=== PATIENT | male | born 1955 | race Caucasian/White ===

== ENCOUNTER 2016-09-24 16:23 | Outpatient (RCR) | payer SELFPAY ==
[2013-12-14 13:06] VITALS: BMI 47.5
[~2016-09-24 16:23] MED LIST: ACET-1966 PO; ACET650T40 PO; ALB0.5 IH; ALB18R INH; ALBU2.5V36 NEB; ALLO100T70 PO; ASP325 PO; ASPI-1471 PO; CAR3.125 PO; CARV3.1255 PO; CEP500; CEPH-13 PO; CYC10; CYCL-343 PO; DABI110C; DABI75CA4 PO; DIGO125T25 PO; DIGO125T73 PO; DOCU-416 PO; DUL100/5PT INH; ENOX120D5 SQ; FLUT1DIS28 IH; FURO-43 PO; FURO-45 PO; FURO-47 PO; FURO10VI IVP; FURO20TA19 PO; HEPA100D58 IV; HYDR-2946; HYDR-4309 PO; IBUP50TA PO; INDO25OR3 PO; INDO50CA92 PO; IPRA0.2S8 IH; KET10 PO; LEV500 PO; LEVO750T44 PO; LOR5 PO; LOR5/325 PO; LOSA50TA68 PO; LOSA50TA72 PO; METO-221 PO; METR250 PO; NAPR-723 PO; NIT4 SL; OXYC-865 PO; OXYGEN INH; OXYGENHOME INH; PANT40TA65 PO; PER PO; POLY17PO25 PO; POTA10CA40 PO; PRED20TA6 PO; RIVA20TA PO; ROS10 PO; SPIR25TA76 PO; TRAM-420 PO; TRAM-627 PO; WARF2TAB81 PO; WARF7.5T32 PO; oxygen IH
[2017-03-16] MEDS ORDERED: FURO-47 PO (12:09)
[2017-03-16] MEDS ORDERED: ALLO-119 PO (12:16)
[2017-03-16] MEDS ORDERED: POTA10CA40 PO (12:16)
[2017-03-16] MEDS ORDERED: RIVA15TA PO (12:16)
[2017-03-16] MEDS ORDERED: OXYC-373 PO (12:16)
[2017-03-16] MEDS ORDERED: IPRA4AER IH (14:29)
[2017-05-29] MEDS ORDERED: ASPI81TA94 PO (12:44)
[2017-05-29] MEDS ORDERED: NITR0.4T3 SL (12:55)
[2017-07-04] MEDS ORDERED: FURO-45 PO (15:54)
[2017-07-04] MEDS ORDERED: RIVA20TA PO (15:54)
[2017-07-04] MEDS ORDERED: PANT40TA65 PO (15:54)
[2017-07-08] MEDS ORDERED: RIVA15TA PO (10:19)
== END 2017-09-24 ==
LOC: TCM 16:23
PROVIDERS: ATTEND Nurse Practitioner
DX: Z02.9 Encounter for administrative examinations, unspecified (principal)

== ENCOUNTER → 2017-09-23 | Outpatient (REF) ==
[2017-07-05 12:46] VITALS: BMI 45.4
[~2017-09-23] MED LIST changes: +ALLO-119 PO; +ASPI81TA94 PO; +IPRA4AER IH; +NITR0.4T3 SL; +OXYC-373 PO; +RIVA15TA PO
--- NOTE | 2017-09-23 15:38 | RADIOLOGY IMAGING REPORT ---
FACILITY: [facility] - [place] PATIENT NAME: Pascale Fink : 1955 MR: [id number] V: [id number] EXAM DATE: ORDERING PHYSICIAN: OC NEUMANN TECHNOLOGIST: Location: [facility] - [place] Patient: Pascale Fink : 1955 Visit/Account:[id number] Date of Sevice: 09/23/2017 Exam type: LUMBAR SPINE 2 OR 3 VIEW History: Chronic low back pain worsening Comparison: February 16, 2012. Findings: There are five nonrib-bearing lumbar-type vertebral bodies present. There is a 2 cm anterior subluxa tion of L5 with respect to S1 that has worsened in the interim and previously measured 1.5 cm. There is severe loss of disc space and marked sclerosis of the adjacent endplates. There is moderate disc space narrowing at L4-5 with gas in the disc space from disc degeneration and marked degenerative en dplate changes and anterior osteophytes. These changes also have worsened in the interim. There is moderate to severe disc space narrowing at L1-2 and L2-3 L3-4 with degenerative endplate changes part icularly prominent at L2-3. There is straightening of normal lumbar lordosis. Extensive spondylotic changes of the visualized lower thoracic spine also noted IMPRESSION: 1. Severe spondylotic changes lumbar spine which have advanced when compared the prior study from 2011 Report Dictated By: Catrina Carbajal MD at 09/23/2017 3:29 PM Report E-Signed By: Catrina Carbajal MD at 09/23/2017 3:35 PM WSN:[email or web address]
== END ==
LOC: RAD 14:22
PROVIDERS: ATTEND Orthopaedic Surgery Orthopaedic Surgery of the Spine
DX: M54.5 Low back pain (principal)
CPT/HCPCS: 72100

== ENCOUNTER 2017-12-16 12:35 | Emergency (ER) | payer MEDICAID ==
[2017-07-05 12:46] VITALS: Wt 127.5 kg
[~2017-12-16 12:35] MED LIST changes: +WARF2TAB13 PO; -WARF2TAB81 PO; +WARF7.5T13 PO; -WARF7.5T32 PO
--- NOTE | 2017-12-16 12:42 | ER Report ---
History and Physical Time Seen By MD: 12:45 HPI/ROS This is a 62-year-old male currently taking sotalol toe secondary to a pulmonary embolism who presents to the emergency department with a bleeding external hemorrhoid. He states that the hemorrhoid has been bleeding since earlier this morning, and he was worried that he was losing too much blood. No chest pain no lightheaded no syncope. No other symptoms other than he still has pain in his buttocks from other external hemorrhoids. Remainder of the 14 system rev: Yes Allergies: Coded Allergies: No Known Drug Allergies (Verified , 12/16/17) Home Meds Active Scripts Rivaroxaban 15 Mg (XARELTO 15 MG) 15 Mg Tablet, 15 MG PO QDAY, #30 TAB Prov:REED AMAYA DO 07/08/17 Reported Medications Pantoprazole Sodium (PANTOPRAZOLE SODIUM) 40 Mg Tablet.dr, 40 MG PO QDAY, TAB.SR 07/04/17 Nitroglycerin (NITROGLYCERIN) 0.4 Mg Tab.subl, 0.4 MG SL Q5MIN Y for PAIN 05/29/17 Potassium Chloride (POTASSIUM CHLORIDE) 10 Meq Capsule.er, 10 MEQ PO QDAY 03/16/17 Oxycodone Hcl/Acetaminophen (OXYCODONE-ACETAMINOPHEN 5-325) 1 Each Tablet, 2 EACH PO TID Y for PAIN, TAB 03/16/17 Allopurinol (ZYLOPRIM) 300 Mg Tablet, 300 MG PO QDAY, TAB 03/16/17 Fluticasone/Salmeterol (ADVAIR 250-50 DISKUS) 1 Each Disk.w.dev, 1 EACH IH BID 08/21/16 Reviewed Nurses Notes: Yes Old Medical Records Reviewed: Yes Hx Smoking: No Smoking Status: Never Smoker Exposure to Second Hand Smoke?: No Hx Substance Use Disorder: No Hx Alcohol Use: No Family History of: HTN, Diabetes, Cardiac, DVT/PE Constitutional Vital Sign - Last 24 Hours 12/16/17 12/16/17 12/16/17 12/16/17 12:37 12:42 12:50 13:00 Temp 98.0 Pulse 88 70 Resp 16 B/P (MAP) 127/89 127/89 (102) 90/59 (69) Pulse Ox 90 94 O2 Delivery Nasal Cannula 12/16/17 12/16/17 12/16/17 12/16/17 13:05 13:20 13:30 13:35 Pulse 66 65 74 B/P (MAP) 85/51 (62) Pulse Ox 94 93 93 12/16/17 12/16/17 12/16/17 12/16/17 13:50 14:00 14:05 16:31 Pulse 65 66 B/P (MAP) 95/65 (75) 129/84 (99) Pulse Ox 93 92 Physical Exam General Appearance: The patient is alert, has no immediate need for airway protection and no current signs of toxicity. Eyes: Pupils equal and round no injection. Respiratory: Chest is non tender, lungs are clear to auscultation. Cardiac: regular rate and rhythm Gastrointestinal: Abdomen is soft and non tender, no masses, bowel sounds normal. Extremities have full range of motion and are non tender. Skin: Multiple external hemorrhoids at anus. One of the hemorrhoids appears to have been bleeding, but has no current active bleeding. DIFFERENTIAL DIAGNOSIS: After history and physical exam differential diagnosis was considered for too much blood loss due to blood thinning medications Medical Decision Making Data Points Result Diagram: 12/16/17 1508 Laboratory Hematology Test 12/16/17 15:08 Red Blood Count 4.72 M/uL (4.00-5.60) Mean Corpuscular Volume 91.5 fL (80.0-96.0) Mean Corpuscular Hemoglobin 30.8 pg (26.0-33.0) Mean Corpuscular Hemoglobin Concent 33.6 g/dL (32.0-36.0) Red Cell Distribution Width 19.6 % (11.5-14.5) Mean Platelet Volume 8.6 fL (7.2-11.1) Neutrophils (%) (Auto) 80.1 % (39.4-72.5) Lymphocytes (%) (Auto) 5.5 % (17.6-49.6) Monocytes (%) (Auto) 8.1 % (4.1-12.4) Eosinophils (%) (Auto) 5.6 % (0.4-6.7) Basophils (%) (Auto) 0.7 % (0.3-1.4) Nucleated RBC Relative Count (auto) 0.0 /100WBC Neutrophils # (Auto) 8.5 K/uL (2.0-7.4) Lymphocytes # (Auto) 0.6 K/uL (1.3-3.6) Monocytes # (Auto) 0.9 K/uL (0.3-1.0) Eosinophils # (Auto) 0.6 K/uL (0.0-0.5) Basophils # (Auto) 0.1 K/uL (0.0-0.1) Nucleated RBC Absolute Count (auto) 0.00 K/uL Chemistry Test 12/16/17 15:08 White Blood Count 10.6 k/uL (4.5-11.0) Red Blood Count 4.72 M/uL (4.00-5.60) Hemoglobin 14.5 g/dL (14.0-18.0) Hematocrit 43.2 % (42.0-52.0) Mean Corpuscular Volume 91.5 fL (80.0-96.0) Mean Corpuscular Hemoglobin 30.8 pg (26.0-33.0) Mean Corpuscular Hemoglobin Concent 33.6 g/dL (32.0-36.0) Red Cell Distribution Width 19.6 % (11.5-14.5) Platelet Count 193 K/uL (150-450) Mean Platelet Volume 8.6 fL (7.2-11.1) Neutrophils (%) (Auto) 80.1 % (39.4-72.5) Lymphocytes (%) (Auto) 5.5 % (17.6-49.6) Monocytes (%) (Auto) 8.1 % (4.1-12.4) Eosinophils (%) (Auto) 5.6 % (0.4-6.7) Basophils (%) (Auto) 0.7 % (0.3-1.4) Nucleated RBC Relative Count (auto) 0.0 /100WBC Neutrophils # (Auto) 8.5 K/uL (2.0-7.4) Lymphocytes # (Auto) 0.6 K/uL (1.3-3.6) Monocytes # (Auto) 0.9 K/uL (0.3-1.0) Eosinophils # (Auto) 0.6 K/uL (0.0-0.5) Basophils # (Auto) 0.1 K/uL (0.0-0.1) Nucleated RBC Absolute Count (auto) 0.00 K/uL ED Course/Re-evaluation ED Course This is a 62-year-old male on Xarelto secondary to a pulmonary embolism. Presented to the emergency department with a bleeding external hemorrhoid that had been bleeding since this morning. The patient came to the emergency department because he was concerned that the bleeding would not stop considering his Xarelto. He did have some episodes of transient hypotension in the emergency department however it spontaneously resolved. His H&H is within normal limits and the hemorrhoid is no longer bleeding. The patient has other residual hemorrhoids that are not hemorrhaging. We discussed hemorrhoid care including sitz baths. The patient voices understanding and will continue to care for the other hemorrhoids as well. Decision to Disposition Date: December 16, 2017 Decision to Disposition Time: 16:31 Depart Departure Latest Vital Signs Vital Signs Date Time Temp Pulse Resp B/P (MAP) Pulse Ox O2 Delivery O2 Flow Rate FiO2 12/16/17 16:31 129/84 (99) 12/16/17 14:05 66 92 12/16/17 12:37 98.0 16 Nasal Cannula Impression: Primary Impression: External hemorrhoid, bleeding Condition: Improved Disposition: HOME OR SELF-CARE Patient Instructions: Hemorrhoids (ED) ONELIA PEREZ MD December 16, 2017 12:42
[2017-12-16 15:13] LABS: PLATELET COUNT, AUTOMATED 193 K/uL (150-450)
[2017-12-16 16:31] VITALS: BP 129/84
== END 2017-12-16 16:32 | disposition home or self-care (01) ==
LOC: ER 12:38
DX: K64.4 Residual hemorrhoidal skin tags (principal)
CPT/HCPCS: 85025; 99283

== ENCOUNTER 2017-12-26 16:20 | Emergency (ER) | payer MEDICAID ==
[2017-07-05 12:46] VITALS: Wt 102.1 kg
--- NOTE | 2017-12-26 16:34 | ER Report ---
History and Physical Time Seen By MD: 16:34 HPI/ROS CHIEF COMPLAINT: Rectal bleeding HISTORY OF PRESENT ILLNESS: This is a 62 male who presents to the emergency department for rectal bleeding. Patient states that about 1-2 hours ago he went to the bathroom and noticed that he had some blood in the stool, in the toilet and on the toilet paper, patient also states that there were some dark red blood clots. Patient also states he has lower abdominal pain. Intermittent nausea. Denies increased shortness breath or chest pain. Patient denies having rectal bleeding before. Patient has had a colonoscopy with a polyp removed which was negative for malignancy. Patient has a history of CHF is on continuous oxygen. No fevers or chills. No urinary discomfort. REVIEW OF SYSTEMS: Constitutional: No fever, no chills. Eyes: No discharge. ENT: No sore throat. Cardiovascular: No chest pain, no palpitations. Respiratory: No cough, no shortness of breath. Gastrointestinal: As above. Genitourinary: No hematuria. Musculoskeletal: No back pain. Skin: No rashes. Neurological: No headache. Allergies: Coded Allergies: No Known Drug Allergies (Verified , 12/26/17) Home Meds Active Scripts Hydrocodone Bit/Acetaminophen (NORCO 5-325 TABLET) 1 Each Tablet, 1 EACH PO Q4- 6H Y for PAIN, #10 TAB 0 Refills Prov:BAIRON [place]- 12/26/17 Ondansetron (ZOFRAN ODT) 4 Mg Tab.rapdis, 4 MG PO Q6H Y for NAUSEA/VOMITING, # 20 TAB.SHIRA Prov:BAIRON [facility]- 12/26/17 Reported Medications [Diuretic] No Conflict Check 12/26/17 Pantoprazole Sodium (PANTOPRAZOLE SODIUM) 40 Mg Tablet.dr, 40 MG PO QODAY, TAB.SR 12/26/17 Rivaroxaban 15 Mg (XARELTO 15 MG) 15 Mg Tablet, 7.5 MG PO, TAB 12/26/17 Nitroglycerin (NITROGLYCERIN) 0.4 Mg Tab.subl, 0.4 MG SL Q5MIN Y for PAIN 05/29/17 Potassium Chloride (POTASSIUM CHLORIDE) 10 Meq Capsule.er, 10 MEQ PO QDAY 03/16/17 Allopurinol (ZYLOPRIM) 300 Mg Tablet, 300 MG PO QDAY, TAB 03/16/17 Fluticasone/Salmeterol (ADVAIR 250-50 DISKUS) 1 Each Disk.w.dev, 1 EACH IH BID 08/21/16 Discontinued Reported Medications Pantoprazole Sodium (PANTOPRAZOLE SODIUM) 40 Mg Tablet.dr, 40 MG PO QDAY, TAB.SR 07/04/17 Oxycodone Hcl/Acetaminophen (OXYCODONE-ACETAMINOPHEN 5-325) 1 Each Tablet, 2 EACH PO TID Y for PAIN, TAB 03/16/17 Discontinued Scripts Rivaroxaban 15 Mg (XARELTO 15 MG) 15 Mg Tablet, 15 MG PO QDAY, #30 TAB Prov:REED AMAYA DO 07/08/17 Past Medical/Surgical History Patient has a past medical and surgical history of congestive heart failure, murmur, hypertension, DVT, pneumonia, pulmonary wasn't, GERD, arthritis, right pinky fracture, vertebrae spurs, tonsillectomy. Reviewed Nurses Notes: Yes Hx Smoking: No Smoking Status: Never Smoker Exposure to Second Hand Smoke?: No Hx Substance Use Disorder: No Hx Alcohol Use: No Constitutional Vital Sign - Last 24 Hours 12/26/17 12/26/17 12/26/17 12/26/17 16:33 16:34 16:45 16:50 Temp 97.2 Pulse 107 75 Resp 20 B/P (MAP) 129/87 129/87 (101) 135/76 (95) Pulse Ox 77 87 O2 Delivery Room Air 12/26/17 12/26/17 12/26/17 12/26/17 17:00 17:15 17:20 17:30 Pulse 68 B/P (MAP) 111/74 (86) 103/72 (82) 119/78 (92) Pulse Ox 91 12/26/17 12/26/17 12/26/17 12/26/17 17:45 18:00 18:05 18:15 Pulse ??? B/P (MAP) 123/78 (93) 118/69 (85) 107/80 (89) 12/26/17 12/26/17 12/26/17 12/26/17 18:20 18:30 18:35 18:45 Pulse 63 60 B/P (MAP) 107/73 (84) 116/80 (92) Pulse Ox 89 87 12/26/17 12/26/17 12/26/17 12/26/17 18:50 19:00 19:05 19:15 Pulse 64 58 B/P (MAP) 117/85 (96) 108/75 (86) Pulse Ox 90 87 12/26/17 12/26/17 12/26/17 12/26/17 19:20 19:25 19:30 19:34 Pulse 62 55 B/P (MAP) 107/78 (88) 120/89 (99) Pulse Ox 90 91 12/26/17 12/26/17 12/26/17 12/26/17 19:40 19:45 19:55 20:00 Pulse 58 59 B/P (MAP) 106/68 (81) 114/86 (95) Pulse Ox 90 95 12/26/17 12/26/17 12/26/17 12/26/17 20:10 20:15 20:22 20:25 Pulse 57 55 B/P (MAP) 126/95 (105) 124/84 (97) Pulse Ox 93 91 12/26/17 12/26/17 12/26/17 12/26/17 20:30 20:40 20:45 20:55 Pulse 57 51 B/P (MAP) 115/78 (90) 121/88 (99) Pulse Ox 92 91 12/26/17 12/26/17 21:00 21:10 Pulse 85 Resp 16 B/P (MAP) 126/90 (102) 138/88 (105) Pulse Ox 95 O2 Delivery Room Air Intake and Output 12/26/17 12/26/17 12/27/17 15:00 23:00 07:00 Intake Total 1000 ml Balance 1000 ml Physical Exam General Appearance: The patient is alert, has no immediate need for airway protection and no signs of toxicity. Eyes: Pupils equal and round no pallor or injection. ENT, Mouth: Mucous membranes are moist. Respiratory: There are no retractions, lungs are clear to auscultation. Cardiovascular: Regular rate and rhythm, systolic murmur, no clicks or rubs. Gastrointestinal: Abdomen is soft and mild lower abdominal tenderness, no masses, bowel sounds normal. Neurological: Alert and oriented 4. Moving all extremities. Following all commands. No focal neuro deficits. Skin: Warm and dry, no rashes. Musculoskeletal: Neck is supple non tender. Extremities are nontender, nonswollen and have full range of motion. DIFFERENTIAL DIAGNOSIS: After history and physical exam differential diagnosis was considered for abdominal pain and rectal bleeding including but not limited to appendicitis, diverticulitis, diverticulosis, upper GI bleed, lower GI bleed , hemorrhoids, cholecystitis, gastritis and urinary tract infection. Medical Decision Making Data Points Result Diagram: 12/26/17 1657 12/26/17 1657 Laboratory Hematology Test 12/26/17 16:45 12/26/17 16:57 12/26/17 18:00 Stool Occult Blood (IFOB) Positive (NEGATIVE) Red Blood Count 4.91 M/uL (4.00-5.60) Mean Corpuscular Volume 91.7 fL (80.0-96.0) Mean Corpuscular Hemoglobin 31.4 pg (26.0-33.0) Mean Corpuscular Hemoglobin Concent 34.2 g/dL (32.0-36.0) Red Cell Distribution Width 18.2 % (11.5-14.5) Mean Platelet Volume 8.5 fL (7.2-11.1) Neutrophils (%) (Auto) 72.3 % (39.4-72.5) Lymphocytes (%) (Auto) 10.9 % (17.6-49.6) Monocytes (%) (Auto) 7.2 % (4.1-12.4) Eosinophils (%) (Auto) 8.8 % (0.4-6.7) Basophils (%) (Auto) 0.8 % (0.3-1.4) Nucleated RBC Relative Count (auto) 0.1 /100WBC Neutrophils # (Auto) 4.9 K/uL (2.0-7.4) Lymphocytes # (Auto) 0.7 K/uL (1.3-3.6) Monocytes # (Auto) 0.5 K/uL (0.3-1.0) Eosinophils # (Auto) 0.6 K/uL (0.0-0.5) Basophils # (Auto) 0.1 K/uL (0.0-0.1) Nucleated RBC Absolute Count (auto) 0.01 K/uL Sodium Level 142 mmol/L (137-145) Potassium Level 4.1 mmol/L (3.5-5.0) Chloride Level 105 mmol/L (98-107) Carbon Dioxide Level 25 mmol/L (22-30) Blood Urea Nitrogen 30 mg/dl (9-21) Creatinine 1.20 mg/dl (0.66-1.25) Glomerular Filtration Rate Calc > 60.0 Random Glucose 112 mg/dl (75-110) Calcium Level 9.0 mg/dl (8.4-10.2) Total Bilirubin 0.9 mg/dl (0.2-1.3) Aspartate Amino Transf (AST/SGOT) 30 U/L (0-35) Alanine Aminotransferase (ALT/SGPT) 25 U/L (0-56) Alkaline Phosphatase 127 U/L (0-126) Total Protein 7.1 gm/dl (6.3-8.2) Albumin 3.8 g/dl (3.5-5.0) Urine Color Yellow Urine Clarity Clear Urine pH 5.0 pH (4.8-9.5) Urine Specific [place] 1.015 Urine Protein Negative mg/dL (NEGATIVE) Urine Glucose (UA) Negative mg/dL (NEGATIVE) Urine Ketones Negative mg/dL (NEGATIVE) Urine Blood Small (NEGATIVE) Urine Nitrite Negative (NEGATIVE) Urine Bilirubin Negative (NEGATIVE) Urine Urobilinogen Negative mg/dL (0.2-1.9) Urine Leukocyte Esterase Negative (NEGATIVE) Urine RBC 2 /HPF (0-2/HPF) Urine WBC None /HPF (0-5/HPF) Urine Squamous Epithelial Cells None /LPF (</=FEW) Urine Bacteria Negative /HPF (NONE-FEW) Urine Mucus None /HPF (NONE-FEW) Chemistry Test 12/26/17 16:45 12/26/17 16:57 12/26/17 18:00 Stool Occult Blood (IFOB) Positive (NEGATIVE) White Blood Count 6.8 k/uL (4.5-11.0) Red Blood Count 4.91 M/uL (4.00-5.60) Hemoglobin 15.4 g/dL (14.0-18.0) Hematocrit 45.0 % (42.0-52.0) Mean Corpuscular Volume 91.7 fL (80.0-96.0) Mean Corpuscular Hemoglobin 31.4 pg (26.0-33.0) Mean Corpuscular Hemoglobin Concent 34.2 g/dL (32.0-36.0) Red Cell Distribution Width 18.2 % (11.5-14.5) Platelet Count 179 K/uL (150-450) Mean Platelet Volume 8.5 fL (7.2-11.1) Neutrophils (%) (Auto) 72.3 % (39.4-72.5) Lymphocytes (%) (Auto) 10.9 % (17.6-49.6) Monocytes (%) (Auto) 7.2 % (4.1-12.4) Eosinophils (%) (Auto) 8.8 % (0.4-6.7) Basophils (%) (Auto) 0.8 % (0.3-1.4) Nucleated RBC Relative Count (auto) 0.1 /100WBC Neutrophils # (Auto) 4.9 K/uL (2.0-7.4) Lymphocytes # (Auto) 0.7 K/uL (1.3-3.6) Monocytes # (Auto) 0.5 K/uL (0.3-1.0) Eosinophils # (Auto) 0.6 K/uL (0.0-0.5) Basophils # (Auto) 0.1 K/uL (0.0-0.1) Nucleated RBC Absolute Count (auto) 0.01 K/uL Glomerular Filtration Rate Calc > 60.0 Calcium Level 9.0 mg/dl (8.4-10.2) Total Bilirubin 0.9 mg/dl (0.2-1.3) Aspartate Amino Transf (AST/SGOT) 30 U/L (0-35) Alanine Aminotransferase (ALT/SGPT) 25 U/L (0-56) Alkaline Phosphatase 127 U/L (0-126) Total Protein 7.1 gm/dl (6.3-8.2) Albumin 3.8 g/dl (3.5-5.0) Urine Color Yellow Urine Clarity Clear Urine pH 5.0 pH (4.8-9.5) Urine Specific Branford 1.015 Urine Protein Negative mg/dL (NEGATIVE) Urine Glucose (UA) Negative mg/dL (NEGATIVE) Urine Ketones Negative mg/dL (NEGATIVE) Urine Blood Small (NEGATIVE) Urine Nitrite Negative (NEGATIVE) Urine Bilirubin Negative (NEGATIVE) Urine Urobilinogen Negative mg/dL (0.2-1.9) Urine Leukocyte Esterase Negative (NEGATIVE) Urine RBC 2 /HPF (0-2/HPF) Urine WBC None /HPF (0-5/HPF) Urine Squamous Epithelial Cells None /LPF (</=FEW) Urine Bacteria Negative /HPF (NONE-FEW) Urine Mucus None /HPF (NONE-FEW) Urinalysis Test 12/26/17 18:00 Urine Color Yellow Urine Clarity Clear Urine pH 5.0 pH (4.8-9.5) Urine Specific Branford 1.015 Urine Protein Negative mg/dL (NEGATIVE) Urine Glucose (UA) Negative mg/dL (NEGATIVE) Urine Ketones Negative mg/dL (NEGATIVE) Urine Blood Small (NEGATIVE) Urine Nitrite Negative (NEGATIVE) Urine Bilirubin Negative (NEGATIVE) Urine Urobilinogen Negative mg/dL (0.2-1.9) Urine Leukocyte Esterase Negative (NEGATIVE) Urine RBC 2 /HPF (0-2/HPF) Urine WBC None /HPF (0-5/HPF) Urine Squamous Epithelial Cells None /LPF (</=FEW) Urine Bacteria Negative /HPF (NONE-FEW) Urine Mucus None /HPF (NONE-FEW) EKG/Imaging Imaging EXAMINATION: CT abdomen with IV contrast CT pelvis with IV contrast HISTORY: Abdominal pain. Rectal bleeding. COMPARISON: 01/18/2017. TECHNIQUE: Axial images were taken through the abdomen and pelvis with intravenous contrast. Sagittal and coronal reformatted images are also submitted. CONTRAST: 75 mL of IV [id number] One of the following dose optimization techniques was utilized in the performance of this exam: Automated exposure control; adjustment of the mA and/ or kV according to the patient's size; or use of an iterative reconstruction technique. Specific details can be referenced in the facility's radiology CT exam operational policy. FINDINGS: Liver/biliary: Large gallstone within the gallbladder. Pancreas: Negative. Spleen: Negative. Adrenal glands: Negative. Kidneys: Simple appearing cyst in the left kidney measuring 3.3 cm. Subcentimeter cyst in the upper pole of the right kidney. Pelvic structures: Urinary bladder diverticulum along the left superolateral aspect of the urinary bladder. Bowel: Colonic diverticulosis. There is a mildly prominent and diverticulum along the sigmoid colon with slight stranding in the adjacent fat. Normal appendix. Peritoneum/retroperitoneum/mesenteries: Slight stranding along the sigmoid colon as noted above. No intraperitoneal free air. Trace free fluid in the upper abdomen along the liver. Vessels: Mild calcified plaque of the aorta and iliac arteries. Musculoskeletal/body wall: Mild body wall edema along the back and flanks. Advanced disc degenerative changes throughout the lumbar spine. 11 mm anterolisthesis of L5 on S1. Chronic bilateral pars defects of L5. Vacuum disc phenomenon at multiple levels. There is bony fusion of L5 and S1 across the disc space. Mild degenerative changes of the hip joints. Lymph node assessment: Negative. Lower chest: Small right pleural effusion. Mild subsegmental atelectasis at the lung bases. Mild cardiomegaly. Small pericardial effusion. IMPRESSION: There is colonic diverticulosis. There is a mildly prominent diverticulum along the sigmoid colon with slight stranding in the adjacent fat, suggesting possible mild diverticulitis. Cholelithiasis. Trace intraperitoneal free fluid. Small right pleural effusion. Small pericardial effusion. Mild cardiomegaly. Mild body wall edema. Advanced degenerative changes in the lumbar spine with chronic spondylolysis of L5 and spondylolisthesis of L5 on S1. Report Dictated By: Santana Escoto MD at 12/26/2017 7:10 PM Report E-Signed By: Santana Escoto MD at 12/26/2017 7:24 PM [id number] ED Course/Re-evaluation Clinical Indication for ER IV: Hydration, IV Access ED Course The patient was admitted to room. History and physical were obtained. Differential diagnosis considered. An IV was started. A CBC, CMP, UA and type and screen were obtained. 4 mg IV Zofran, 1 L normal saline bolus. Lab studies unremarkable. UA unremarkable. A CT of the abdomen pelvis showing Some colonic diverticulosis, possible mild diverticulitis, cholelithiasis, which he has had in the past, trace intraperitoneal free fluid, small pleural effusion mild cardiomegaly, mild by wall edema. I did review these laboratory studies and the CT results with the patient and the family, I did tell him I elected to talk to the general surgeon on-call and get their recommendations on how to proceed. I did speak with Dr. Jarquin as noted below. I did tell them that he needs to stop Xarelto for 3 days. Also told him that he needs to follow-up with Dr. Quintero this week for a colonoscopy. I also did tell them that given the patient's normal vital signs, afebrile and no white count Dr. Jarquin did not feel that antibiotics would necessarily be beneficial at this time. I did discuss this with the family and the patient and they were in agreement with this we did have agreed that if the patient becomes febrile or has any other changes that he will contact his primary care provider or return to the emergency department. Patient states he was having a small amount of nausea and finally decided to try small dose of pain medication before going home. I did give the patient 4 mg IV Zofran and 2 mg IV morphine. Patient was given a home pack for Zofran and hydrocodone. Patient was also given a prescription for Zofran and hydrocodone. The patient family has other questions or concerns at time of discharge. Patient states he's feeling much better and feels that he go home. 12/26/2017 6:28:37 pm I did review the lab results with the patient, I did tell him that his hemoglobin and hematocrit look good. And I'm waiting on the CT results. 12/26/2017 8:04:38 pm I did speak with Dr. Jarquin the on-call surgeon regarding the patient's case, he felt that the patient would be fine to go home and follow-up this week for a colonoscopy. He said he would recommend stopping the Xarelto for 3 days and at this point with no fever and the white count does not feel that antibiotics are warranted at this time. Patient's last colonoscopy was April 2017. 12/26/2017 9:00:20 pm patient states the nausea and mild abdominal pain have resolved. Patient states he is ready to go home. Patient has no more rectal bleeding at this time. Decision to Disposition Date: December 26, 2017 Decision to Disposition Time: 21:01 Depart Departure Latest Vital Signs Vital Signs Date Time Temp Pulse Resp B/P (MAP) Pulse Ox O2 Delivery O2 Flow Rate FiO2 12/26/17 21:10 85 16 138/88 (105) 95 Room Air 12/26/17 16:33 97.2 Impression: Primary Impression: Diverticulosis Additional Impressions: Rectal bleeding Abdominal pain Condition: Improved Disposition: HOME OR SELF-CARE Referrals: OLMAN QUINTERO MD New Scripts Hydrocodone Bit/Acetaminophen (NORCO 5-325 TABLET) 1 Each Tablet 1 EACH PO Q4-6H Y for PAIN, #10 TAB 0 Refills Prov: BAIRON WASHINGTON [employer] 12/26/17 Ondansetron (ZOFRAN ODT) 4 Mg Tab.rapdis 4 MG PO Q6H Y for NAUSEA/VOMITING, #20 TAB.SHIRA Prov: BAIRON WASHINGTON-STEFFI 12/26/17 Patient Instructions: Diverticulosis (DC) Additional Instructions: Drink plenty of fluids. Get plenty of rest. Take the pain medication and nausea medication as prescribed. If you develop fevers, increased abdominal pain or worsening symptoms consider returning to the ED for reevaluation, STOP YOUR XARELTO FOR [address] Landry Wednesday and schedule a follow up colonoscopy. Follow up with your primary care provider as scheduled. Problem Qualifiers Primary Impression: Diverticulosis Diverticulosis site: unspecified location Diverticulosis bleeding: diverticulosis with bleeding Qualified Codes: K57.91 - Diverticulosis of intestine, part unspecified, without perforation or abscess with bleeding Additional Impressions: Abdominal pain Abdominal location: generalized Qualified Codes: R10.84 - Generalized abdominal pain BAIRON WASHINGTON-STEFFI December 26, 2017 16:34
[2017-12-26] MEDS ORDERED: NS(*) 0.9% 1000 ML BAG 1,000 ML IV ONE (16:36)
[2017-12-26] MEDS ORDERED: PANT40TA65 PO (16:40)
[2017-12-26] MEDS ORDERED: RIVA15TA PO (16:40)
[2017-12-26] MEDS ORDERED: DIURETIC (16:41)
[2017-12-26] MEDS ORDERED: ONDANSETRON 4 MG/2 ML VIAL IVP ONE ×2 (16:50→20:15)
[2017-12-26 17:10] LABS: PLATELET COUNT, AUTOMATED 179 K/uL (150-450)
[2017-12-26] MEDS ORDERED: IOPAMIDOL 76% 75 ML INFUS BTL 75 ML ONE (18:09)
--- NOTE | 2017-12-26 19:28 | RADIOLOGY IMAGING REPORT ---
FACILITY: [facility] [place] PATIENT NAME: Pascale Fink : 1955 MR: [id number] V: [id number] EXAM DATE: ORDERING PHYSICIAN: BAIRON WASHINGTON TECHNOLOGIST: Location: [facility] Patient: Pascale Fink : 1955 Visit/Account:[id number] Date of Sevice: 12/26/2017 EXAMINATION: CT abdomen with IV contrast CT pelvis with IV contrast HISTORY: Abdominal pain. Rectal bleeding. COMPARISON: 01/18/2017. TECHNIQUE: Axial images were taken through the abdomen and pelvis with intravenous contrast. Sagitt al and coronal reformatted images are also submitted. CONTRAST: 75 mL of IV [id number] One of the following dose optimization techniques was utilized in the performance of this exam: Autom ated exposure control; adjustment of the mA and/or kV according to the patient's size; or use of an i terative reconstruction technique. Specific details can be referenced in the facility's radiology C T exam operational policy. FINDINGS: Liver/biliary: Large gallstone within the gallbladder. Pancreas: Negative. Spleen: Negative. Adrenal glands: Negative. Kidneys: Simple appearing cyst in the left kidney measuring 3.3 cm. Subcentimeter cyst in the upper p ole of the right kidney. Pelvic structures: Urinary bladder diverticulum along the left superolateral aspect of the urinary bladder. Bowel: Colonic diverticulosis. There is a mildly prominent and diverticulum along the sigmoid colon w ith slight stranding in the adjacent fat. Normal appendix. Peritoneum/retroperitoneum/mesenteries: Slight stranding along the sigmoid colon as noted above. No i ntraperitoneal free air. Trace free fluid in the upper abdomen along the liver. Vessels: Mild calcified plaque of the aorta and iliac arteries. Musculoskeletal/body wall: Mild body wall edema along the back and flanks. Advanced disc degenerative changes throughout the lumbar spine. 11 mm anterolisthesis of L5 on S1. Chronic bilateral pars defec ts of L5. Vacuum disc phenomenon at multiple levels. There is bony fusion of L5 and S1 across the dis c space. Mild degenerative changes of the hip joints. Lymph node assessment: Negative. Lower chest: Small right pleural effusion. Mild subsegmental atelectasis at the lung bases. Mild card iomegaly. Small pericardial effusion. IMPRESSION: There is colonic diverticulosis. There is a mildly prominent diverticulum along the sigmoid colon wit h slight stranding in the adjacent fat, suggesting possible mild diverticulitis. Cholelithiasis. Trace intraperitoneal free fluid. Small right pleural effusion. Small pericardial effusion. Mild cardiomegaly. Mild body wall edema. Advanced degenerative changes in the lumbar spine with chronic spondylolysis of L5 and spondylolisthe sis of L5 on S1. Report Dictated By: Santana Escoto MD at 12/26/2017 7:10 PM Report E-Signed By: Santana Escoto MD at 12/26/2017 7:24 PM WSN:[id number]
[2017-12-26] MEDS ORDERED: ONDANSETRON 4 MG ODT TH SL ONE (20:15)
[2017-12-26] MEDS ORDERED: ACET/HYDROC 5/325MG TH ER ONLY 2 TAB/BOTTLE PO ONE (20:15)
[2017-12-26] MEDS ORDERED: MORPHINE 2 MG/ML SYR IVP ONE (20:15)
[2017-12-26] MEDS ORDERED: HYDR-4309 PO (20:24)
[2017-12-26] MEDS ORDERED: ONDA4TAB PO (20:24)
[2017-12-26 21:10] VITALS: BP 138/88
== END 2017-12-26 21:25 | disposition home or self-care (01) ==
LOC: ER 16:37
DX: K57.91 Diverticulosis of intestine, part unspecified, without perforation or abscess with bleeding (principal); R10.84 Generalized abdominal pain
CPT/HCPCS: 74177; 81001; 82274; 85025; 86850; 86900; 86901; 96361; 96374; 96375; 96376; 99284; J2270; J2405; J7030; Q9967; S0119; 82040; 82247; 82310; 82374; 82435; 82565; 82947; 84075; 84132; 84155; 84295; 84450; 84460; 84520

== ENCOUNTER 2018-04-30 11:39 | Emergency (ER) | payer MEDICAID ==
[2017-07-05 12:46] VITALS: Wt 111.2 kg
[~2018-04-30 11:39] MED LIST changes: +DIURETIC; +INDO-23 PO; -INDO50CA92 PO; -LOSA50TA72 PO; +LOSA50TA74 PO; +ONDA4TAB PO
[2018-04-30] MEDS ORDERED: NS(*) 0.9% 500 ML BAG 500 ML IV ONE (11:55)
[2018-04-30] MEDS ORDERED: ASPIRIN 81 MG CHEW PO ONE (11:55)
--- NOTE | 2018-04-30 11:55 | ER Report ---
History and Physical Time Seen By MD: 11:47 Hx. of Stated Complaint: chest pain mid chest past week, sob, headache and blurred vision, no relief from nitro HPI/ROS CHIEF COMPLAINT: Chest pain, headache HISTORY OF PRESENT ILLNESS: 62-year-old male patient presents to emergency room with complaint of chest pain and headache. Patient states this been going on for the past week. He states that both started approximate the same time. States it does seem get worse whenever he bends over. Patient states that he gets incre asing pain with ambulation and movement. He states that he also has worsening pain in his head and his chest when he bends over. He denies any nausea, vomiting or diarrhea. Patient states he is not taking any medication for this. Patient states he has not seen his primary care provider for this. He became concerned because chest pain seemed to worsen today. REVIEW OF SYSTEMS: Respiratory: No cough, no dyspnea. Cardiovascular: As noted above Gastrointestinal: No vomiting, no abdominal pain. Musculoskeletal: No back pain. Allergies: Coded Allergies: No Known Drug Allergies (Verified , 12/26/17) Home Meds Active Scripts Fluticasone Prop 50 Mcg Ns (FLONASE 50 MCG NS) 16 Gm [place].susp, 1 SPRAY NS BID, #1 BOT Prov:CAMREN GRIDER BALANCE STAFF STAKER 04/30/18 Ondansetron (ZOFRAN ODT) 4 Mg Tab.rapdis, 4 MG PO Q6H PRN for NAUSEA/VOMITING, #20 TAB.SHIRA Prov:BAIRON WASHINGTON BALANCE STAFF STAKER-BC 12/26/17 Reported Medications [Diuretic] No Conflict Check 12/26/17 Pantoprazole Sodium (PANTOPRAZOLE SODIUM) 40 Mg Tablet.dr, 40 MG PO QODAY, TAB.SR 12/26/17 Rivaroxaban 15 Mg (XARELTO 15 MG) 15 Mg Tablet, 7.5 MG PO, TAB 12/26/17 Nitroglycerin (NITROGLYCERIN) 0.4 Mg Tab.subl, 0.4 MG SL Q5MIN PRN for PAIN 05/29/17 Potassium Chloride (POTASSIUM CHLORIDE) 10 Meq Capsule.er, 10 MEQ PO QDAY 03/16/17 Allopurinol (ZYLOPRIM) 300 Mg Tablet, 300 MG PO QDAY, TAB 03/16/17 Fluticasone/Salmeterol (ADVAIR 250-50 DISKUS) 1 Each Disk.w.dev, 1 EACH IH BID 08/21/16 Discontinued Scripts Hydrocodone Bit/Acetaminophen (HYDROCODON-ACETAMINOPHEN 5-325) 1 Each Tablet, 1 EACH PO Q4-6H PRN for PAIN, #12 TAB Prov:CARMEN GRIDER BALANCE STAFF STAKER 04/30/18 Hydrocodone Bit/Acetaminophen (NORCO 5-325 TABLET) 1 Each Tablet, 1 EACH PO Q4- 6H PRN for PAIN, #10 TAB 0 Refills Prov:BAIRON WASHINGTON BALANCE STAFF STAKER-BC 12/26/17 Past Medical/Surgical History Patient has a past medical history of CHF, murmur, hypertension, obstructive sleep apnea, pneumonia, COPD, reflux, arthritis, pinky finger fracture, back pain. Patient has a surgical history of tonsillectomy. Patient has a family medical history of cancer, stroke, CAD, diabetes. Reviewed Nurses Notes: Yes Hx Smoking: No Smoking Status: Never Smoker Exposure to Second Hand Smoke?: No Hx Substance Use Disorder: No Hx Alcohol Use: No Constitutional Vital Sign - Last 24 Hours 04/30/18 04/30/18 04/30/18 04/30/18 11:39 11:43 11:44 11:54 Temp 98.0 Pulse ??? 81 74 Resp 20 30 B/P (MAP) 140/91 (107) 140/91 Pulse Ox 86 94 O2 Delivery Nasal Cannula 04/30/18 04/30/18 04/30/18 04/30/18 12:00 12:09 12:15 12:24 Pulse 68 62 Resp 16 9 B/P (MAP) 122/80 (94) 112/79 (90) Pulse Ox 91 91 04/30/18 04/30/18 04/30/18 04/30/18 12:30 12:39 12:45 12:54 Pulse ??? 65 Resp 21 B/P (MAP) ???/??? (7795) 118/86 (97) Pulse Ox 92 04/30/18 04/30/18 04/30/18 04/30/18 13:00 13:09 13:15 13:24 Pulse 65 66 Resp 21 11 B/P (MAP) 115/78 (90) 113/75 (88) Pulse Ox 92 92 04/30/18 04/30/18 04/30/18 04/30/18 13:30 13:35 13:45 13:50 Pulse 67 69 Resp 19 16 B/P (MAP) 114/74 (87) 107/70 (82) Pulse Ox 94 92 04/30/18 04/30/18 04/30/18 04/30/18 14:00 14:05 14:15 14:20 Pulse 59 65 Resp 12 18 B/P (MAP) 120/93 (102) 121/89 (100) Pulse Ox 92 95 04/30/18 04/30/18 04/30/18 04/30/18 14:30 14:35 14:42 14:45 Pulse 69 Resp 12 B/P (MAP) 118/91 (100) 112/87 (95) Pulse Ox 93 O2 Flow Rate 3.0 04/30/18 04/30/18 04/30/18 04/30/18 14:50 15:00 15:05 15:15 Pulse 62 57 Resp 24 19 B/P (MAP) 123/86 (98) 125/80 (95) Pulse Ox 92 92 04/30/18 15:20 Pulse ??? Physical Exam General Appearance: The patient is alert, has no immediate need for airway protection and no current signs of toxicity. Eyes: Pupils are equal round reactive. Extraocular movements intact. Respiratory: Chest is non tender, lungs are clear to auscultation. Cardiac: regular rate and rhythm Gastrointestinal: Abdomen is soft and non tender, no masses, bowel sounds normal. Musculoskeletal: Neck: Neck is supple and non tender. Extremities have full range of motion and are non tender. Skin: No rashes or lesions. Neuro: Patient is alert and oriented 4, cranial nerves II through XII grossly intact. DIFFERENTIAL DIAGNOSIS: After history and physical exam differential diagnosis was considered for chest pain including but not limited to myocardial ischemia, pericarditis pulmonary embolus, chest wall pain, pleural inflammation and pulmonary infectious causes.headache including but not limited to subarachnoid hemorrhage, migraine headache, tension headache and infectious causes such as meningitis, pharyngitis and sinusitis. Medical Decision Making Data Points Result Diagram: 04/30/18 1146 04/30/18 1146 Laboratory Hematology Test 04/30/18 11:46 Red Blood Count 5.34 M/uL (4.00-5.60) Mean Corpuscular Volume 97.9 fL (80.0-96.0) Mean Corpuscular Hemoglobin 32.9 pg (26.0-33.0) Mean Corpuscular Hemoglobin Concent 33.6 g/dL (32.0-36.0) Red Cell Distribution Width 16.8 % (11.5-14.5) Mean Platelet Volume 9.5 fL (7.2-11.1) Neutrophils (%) (Auto) 64.2 % (39.4-72.5) Lymphocytes (%) (Auto) 13.4 % (17.6-49.6) Monocytes (%) (Auto) 9.5 % (4.1-12.4) Eosinophils (%) (Auto) 12.0 % (0.4-6.7) Basophils (%) (Auto) 0.9 % (0.3-1.4) Nucleated RBC Relative Count (auto) 0.1 /100WBC Neutrophils # (Auto) 3.4 K/uL (2.0-7.4) Lymphocytes # (Auto) 0.7 K/uL (1.3-3.6) Monocytes # (Auto) 0.5 K/uL (0.3-1.0) Eosinophils # (Auto) 0.6 K/uL (0.0-0.5) Basophils # (Auto) 0.0 K/uL (0.0-0.1) Nucleated RBC Absolute Count (auto) 0.00 K/uL Prothrombin Time 14.6 seconds (12.0-14.4) Prothromb Time International Ratio 1.13 Activated Partial Thromboplast Time 32 seconds (23-35) Sodium Level 140 mmol/L (137-145) Potassium Level 4.3 mmol/L (3.5-5.0) Chloride Level 101 mmol/L (98-107) Carbon Dioxide Level 29 mmol/L (22-30) Blood Urea Nitrogen 26 mg/dl (9-21) Creatinine 1.20 mg/dl (0.66-1.25) Glomerular Filtration Rate Calc > 60.0 Random Glucose 94 mg/dl (75-110) Calcium Level 9.3 mg/dl (8.4-10.2) Total Bilirubin 2.0 mg/dl (0.2-1.3) Aspartate Amino Transf (AST/SGOT) 33 U/L (0-35) Alanine Aminotransferase (ALT/SGPT) 27 U/L (0-56) Alkaline Phosphatase 147 U/L (0-126) Troponin I 0.036 ng/ml Total Protein 7.7 g/dl (6.3-8.2) Albumin 3.9 g/dl (3.5-5.0) Chemistry Test 04/30/18 11:46 White Blood Count 5.3 k/uL (4.5-11.0) Red Blood Count 5.34 M/uL (4.00-5.60) Hemoglobin 17.5 g/dL (14.0-18.0) Hematocrit 52.3 % (42.0-52.0) Mean Corpuscular Volume 97.9 fL (80.0-96.0) Mean Corpuscular Hemoglobin 32.9 pg (26.0-33.0) Mean Corpuscular Hemoglobin Concent 33.6 g/dL (32.0-36.0) Red Cell Distribution Width 16.8 % (11.5-14.5) Platelet Count 174 K/uL (150-450) Mean Platelet Volume 9.5 fL (7.2-11.1) Neutrophils (%) (Auto) 64.2 % (39.4-72.5) Lymphocytes (%) (Auto) 13.4 % (17.6-49.6) Monocytes (%) (Auto) 9.5 % (4.1-12.4) Eosinophils (%) (Auto) 12.0 % (0.4-6.7) Basophils (%) (Auto) 0.9 % (0.3-1.4) Nucleated RBC Relative Count (auto) 0.1 /100WBC Neutrophils # (Auto) 3.4 K/uL (2.0-7.4) Lymphocytes # (Auto) 0.7 K/uL (1.3-3.6) Monocytes # (Auto) 0.5 K/uL (0.3-1.0) Eosinophils # (Auto) 0.6 K/uL (0.0-0.5) Basophils # (Auto) 0.0 K/uL (0.0-0.1) Nucleated RBC Absolute Count (auto) 0.00 K/uL Prothrombin Time 14.6 seconds (12.0-14.4) Prothromb Time International Ratio 1.13 Activated Partial Thromboplast Time 32 seconds (23-35) Glomerular Filtration Rate Calc > 60.0 Calcium Level 9.3 mg/dl (8.4-10.2) Total Bilirubin 2.0 mg/dl (0.2-1.3) Aspartate Amino Transf (AST/SGOT) 33 U/L (0-35) Alanine Aminotransferase (ALT/SGPT) 27 U/L (0-56) Alkaline Phosphatase 147 U/L (0-126) Troponin I 0.036 ng/ml Total Protein 7.7 g/dl (6.3-8.2) Albumin 3.9 g/dl (3.5-5.0) Coagulation Test 04/30/18 11:46 Prothrombin Time 14.6 seconds Prothromb Time International Ratio 1.13 Activated Partial Thromboplast Time 32 seconds EKG/Imaging EKG Interpretation 12 lead EKG: Rhythm: Atrial fibrillation with ventricular rate of 74 bpm [place]: Right axis deviation QRS: Incomplete right bundle branch block ST segments: Nonspecific ST abnormality Imaging 2 VIEWS CHEST INDICATION: Chest pain. COMPARISON: 07/04/2017. FINDINGS: Cardiac silhouette remains enlarged but unchanged. Mediastinal silhouettes within normal limits. The central pulmonary vessels are again prominent with distal tapering. This is unchanged from previous exam. There is no focal infiltrate or lobar consolidation. There is continued minimal blunting the right costophrenic angle. Left costophrenic angles well visualized. No indication of pneumothorax. No nodule. Upper abdomen is unremarkable. No acute bony abnormality. IMPRESSION: 1. Stable enlarged cardiac silhouette without edema or infiltrate. 2. Continued minimal blunting of the right costophrenic angle. This could be due to small pleural effusion or pleural thickening. 3. Continued prominence of the central pulmonary arteries with distal tapering. This is nonspecific but could be due to pulmonary artery hypertension. Report Dictated By: Lucas Benito at 04/30/2018 12:50 PM Report E-Signed By: Lucas Benito at 04/30/2018 12:[address] Head without contrast Indication: Headache. Comparison: None available Technique: Axial CT images were obtained through the brain from the skull base to the vertex without administration of IV contrast. Reformatted coronal and sagittal images were also obtained. One of the following dose optimization techniques was utilized in the performance of this exam: automated exposure control; adjustment of the mA and/or kV according to the patient's size; or use of an iterative reconstruction technique. Specific details can be referenced in the facility's radiology CT exam operational policy. Findings: No evidence of mass, mass effect, or midline shift. No acute intracranial hemorrhage or acute territorial infarction. No extra-axial fluid collection or hydrocephalus. No abnormal density. Pires/white matter differentiation appears normal. Bony structures show no fractures or lesions. The visualized paranasal sinuses and mastoid air cells are clear. IMPRESSION: 1. Negative unenhanced CT of the head. Report Dictated By: Lucas Benito at 04/30/2018 12:46 PM Report E-Signed By: Lucas Benito at 04/30/2018 12:50 PM ED Course/Re-evaluation ED Course Patient was admitted to exam room, history and physical were obtained. Differential diagnoses were considered. On examination patient was complaining of pain that he rated an 8 out of 10. Patient did receive some morphine which seemed to help. A CBC, CMP, troponin, EKG, chest x-ray, d-dimer were done. Lab results were unremarkable. Patient had a negative d-dimer. Patient also had a negative troponin. It measured 0.036. There is very consistent with the last troponin which was done back in September. Chest x-ray was done which showed no acute cardiopulmonary processes. CT scan of the head was done which was also negative. I discussed the findings with the patient and family. Patient states he still having a throbbing headache. We did go ahead and treat him with 30 mg of Toradol, 25 mg of Benadryl and 30 mg of Norflex IV. Patient did have improvement in his pain. He states he is feeling tired. We will go ahead and discharge him home. States he is feeling congested that time we'll go ahead and put him on Flonase. Patient also states he is having some pain and like some pain medication. We'll go ahead and prescribe him a limited supply of pain medication and have him follow-up with his primary care provider next week. Patient verbalized understanding and agreement with plan. Decision to Disposition Date: Apr 30, 2018 Decision to Disposition Time: 14:59 Depart Departure Latest Vital Signs Vital Signs Date Time Temp Pulse Resp B/P (MAP) Pulse Ox O2 Delivery O2 Flow Rate FiO2 04/30/18 15:20 ??? 04/30/18 15:15 125/80 (95) 04/30/18 15:05 19 92 9/29/18 14:42 3.0 04/30/18 11:44 98.0 Nasal Cannula Impression: Primary Impression: Chest pain Additional Impression: Headache Condition: Improved Disposition: HOME OR SELF-CARE New Scripts Fluticasone Prop 50 Mcg Ns (FLONASE 50 MCG NS) 16 Gm [place].susp 1 SPRAY NS BID, #1 BOT Prov: CARMEN GRIDER 04/30/18 Patient Instructions: Acute Headache (ED) Additional Instructions: Continue with normal diet. Limit salt intake. Take you normal medications. Return to the ER if condition worsens. Limit activity by pain. Follow up with your primary care provider in the next week. Problem Qualifiers Primary Impression: Chest pain Chest pain type: other chest pain Qualified Codes: R07.89 - Other chest pain Additional Impression: Headache Headache type: unspecified Headache chronicity pattern: acute headache Intractability: not intractable Qualified Codes: R51 - Headache CHENCHO GRIDERLauren DOE Apr 30, 2018 11:55
[2018-04-30] MEDS: MORPHINE 2 MG/ML SYR IVP ONE ×2 (12:04→12:07)
[2018-04-30 12:07] LABS: PLATELET COUNT, AUTOMATED 174 K/uL (150-450)
[2018-04-30 12:14] LABS: INR 1.13
--- NOTE | 2018-04-30 12:54 | RADIOLOGY IMAGING REPORT ---
FACILITY: [facility] PATIENT NAME: Pascale Fikn : 1955 MR: [id number] V: [id number] EXAM DATE: ORDERING PHYSICIAN: CARMEN GRIDER TECHNOLOGIST: Location: [facility] Patient: Pascale Fink : 1955 Visit/Account:[id number] Date of Sevice: 04/30/2018 CT Head without contrast Indication: Headache. Comparison: None available Technique: Axial CT images were obtained through the brain from the skull base to the vertex without administration of IV contrast. Reformatted coronal and sagittal images were also obtained. One of the following dose optimization techniques was utilized in the performance of this exam: autom ated exposure control; adjustment of the mA and/or kV according to the patient's size; or use of an i terative reconstruction technique. Specific details can be referenced in the facility's radiology CT exam operational policy. Findings: No evidence of mass, mass effect, or midline shift. No acute intracranial hemorrhage or acute territorial infarction. No extra-axial fluid collection or hydrocephalus. No abnormal density. Pires/white matter differentiat ion appears normal. Bony structures show no fractures or lesions. The visualized paranasal sinuses and mastoid air cells are clear. IMPRESSION: 1. Negative unenhanced CT of the head. Report Dictated By: Lucas Benito at 04/30/2018 12:46 PM Report E-Signed By: Lucas Benito at 04/30/2018 12:50 PM WSN:[id number]
--- NOTE | 2018-04-30 12:56 | RADIOLOGY IMAGING REPORT ---
FACILITY: [facility] [place] PATIENT NAME: Pascale Fink : 1955 MR: [id number] V: [id number] EXAM DATE: ORDERING PHYSICIAN: CARMEN GRIDER TECHNOLOGIST: Location: [facility] Patient: Pascale Fink : 1955 Visit/Account:[id number] Date of Sevice: 04/30/2018 2 VIEWS CHEST INDICATION: Chest pain. COMPARISON: 07/04/2017. FINDINGS: Cardiac silhouette remains enlarged but unchanged. Mediastinal silhouettes within normal limits. The central pulmonary vessels are again prominent with distal tapering. This is unchanged from previous e xam. There is no focal infiltrate or lobar consolidation. There is continued minimal blunting the right costophrenic angle. Left costophrenic angles well visua lized. No indication of pneumothorax. No nodule. Upper abdomen is unremarkable. No acute bony abnormality. IMPRESSION: 1. Stable enlarged cardiac silhouette without edema or infiltrate. 2. Continued minimal blunting of the right costophrenic angle. This could be due to small pleural eff usion or pleural thickening. 3. Continued prominence of the central pulmonary arteries with distal tapering. This is nonspecific b ut could be due to pulmonary artery hypertension. Report Dictated By: Lucas Benito at 04/30/2018 12:50 PM Report E-Signed By: Lucas Benito at 04/30/2018 12:53 PM WSN:[id number]
--- NOTE | 2018-04-30 13:01 | EKG ---
[place] [facility] [place] RABIA GOLDEN : [id number] MR: [id number] V: [id number] EXAM DATE: ORDERING PHYSICIAN: CARMEN GRIDER TECHNOLOGIST: Test Reason : CHEST PAIN Blood Pressure : / mmHG Vent. Rate : 074 BPM Atrial Rate : 060 BPM P-R Int : 000 ms QRS Dur : 102 ms QT Int : 414 ms P-R-T Axes : 000 130 -52 degrees QTc Int : 459 ms Atrial fibrillation Right axis deviation Incomplete right bundle branch block Right ventricular hypertrophy Nonspecific ST and T wave abnormality , probably digitalis effect Abnormal ECG When compared with ECG of 08-JUN-2017 14:39, QRS axis shifted right Confirmed by REED AMAYA ([id number]) on 04/30/2018 2:11:33 PM Referred By: Confirmed By:REED AMAYA
[2018-04-30] MEDS ORDERED: diphenhydrAMINE 50 MG/ML VIAL IVP ONE (13:35)
[2018-04-30] MEDS ORDERED: ORPHENADRINE 60MG/2ML INJ IVP ONE (13:35)
[2018-04-30] MEDS ORDERED: KETOROLAC 15 MG/ML VIAL IVP ONE (13:35)
[2018-04-30] MEDS ORDERED: FLUT16SP19 NS (15:00)
[2018-04-30] MEDS ORDERED: HYDR-385 PO (15:00)
[2018-04-30 15:15] VITALS: BP 125/80
== END 2018-04-30 15:20 | disposition home or self-care (01) ==
LOC: ER 11:56
DX: R07.89 Other chest pain (principal); R51 Headache; I48.91 Unspecified atrial fibrillation; R94.31 Abnormal electrocardiogram [ECG] [EKG]
CPT/HCPCS: 70450; 71046; 84484; 85025; 85610; 85730; 93005; 96374; 96375; 99284; J1200; J1885; J2270; J2360; J7040; 82040; 82247; 82310; 82374; 82435; 82565; 82947; 84075; 84132; 84155; 84295; 84450; 84460; 84520

== ENCOUNTER 2018-05-04 11:17 | Emergency (ER) | payer OTHER, MEDICAID ==
[2017-07-05 12:46] VITALS: Wt 102.1 kg
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
[2018-05-04] MEDS ORDERED: TETRACAIN/EPI/LIDO GEL 3ML SYR TP ONE (11:30)
[2018-05-04] MEDS ORDERED: EMS NS 0.9%(*) 1000 ML BAG 1,000 ML IV ONE (11:30)
[2018-05-04] MEDS ORDERED: DIPHTH/TETANUS/ACEL. PERTUSSIS IM ONLY ONE (11:35)
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
[2018-05-04 11:49] LABS: PLATELET COUNT, AUTOMATED 175 K/uL (150-450)
[2018-05-04 12:11] LABS: INR 1.12
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
[2018-05-04 13:54] VITALS: BP 119/85
== END 2018-05-04 14:00 | disposition home or self-care (01) ==
LOC: ER 11:24
DX: S16.1XXA Strain of muscle, fascia and tendon at neck level, initial encounter (principal); S00.03XA Contusion of scalp, initial encounter; S00.83XA Contusion of other part of head, initial encounter; V49.40XA Driver injured in collision with unspecified motor vehicles in traffic accident, initial encounter; I48.91 Unspecified atrial fibrillation; R94.31 Abnormal electrocardiogram [ECG] [EKG]
CPT/HCPCS: 70450; 71046; 72125; 82040; 82247; 82310; 82374; 82435; 82565; 82947; 84075; 84132; 84155; 84295; 84450; 84460; 84484; 84520; 85025; 85610; 85730; 90715; 93005; 96360; 99285

== ENCOUNTER → 2018-05-04 | Outpatient (CLI) | payer OTHER, MEDICAID ==
[2017-07-05 12:46] VITALS: BMI 45.4
[~2018-05-04] MED LIST changes: +FLUT16SP19 NS; +HYDR-385 PO
== END ==
LOC: AMB 11:01
PROVIDERS: ATTEND Nurse Practitioner
DX: R07.9 Chest pain, unspecified (principal); S00.12XA Contusion of left eyelid and periocular area, initial encounter; V49.9XXA Car occupant (driver) (passenger) injured in unspecified traffic accident, initial encounter; W22.11XA Striking against or struck by driver side automobile airbag, initial encounter; Y92.411 Interstate highway as the place of occurrence of the external cause
CPT/HCPCS: A0425; A0427

== ENCOUNTER → 2018-05-16 | Outpatient (CLI) | payer OTHER, MEDICAID ==
[2017-07-05 12:46] VITALS: BMI 45.4
[~2018-05-16] MED LIST changes: -HYDR-4309 PO; +HYDR-653 PO
--- NOTE | 2018-05-16 16:54 | RADIOLOGY IMAGING REPORT ---
FACILITY: [facility] PATIENT NAME: Pascale Fink : 1955 MR: [id number] V: [id number] EXAM DATE: ORDERING PHYSICIAN: FRANCA OG TECHNOLOGIST: Location: [facility] - [place] Patient: Pascale Fink : 1955 Visit/Account:[id number] Date of Sevice: 05/16/2018 EXAMINATION: CT head without IV contrast HISTORY: Postconcussion syndrome. COMPARISON: CT head from 05/04/2018. TECHNIQUE: Contiguous axial images were obtained from the skull base to the vertex without intraven ous contrast. Sagittal and coronal reformatted images are also submitted. One of the following dose optimization techniques was utilized in the performance of this exam: Autom ated exposure control; adjustment of the mA and/or kV according to the patient's size; or use of an i terative reconstruction technique. Specific details can be referenced in the facility's radiology C T exam operational policy. FINDINGS: Brain volume: Normal. Ventricles: Normal. Acute ischemic changes: None. Hemorrhage: No acute intracranial hemorrhage. Masses/edema: None. Pires-white: Negative. White matter: Normal. Vessels: Negative. Extra-axial: Negative. Calvarium/scalp: Left frontal scalp hematoma is decreased. No acute fracture. Skull base/visualized face: Negative. Visualized sinuses/orbits: Negative. IMPRESSION: No acute fracture, hemorrhage or intracranial mass lesion. No CT evidence of acute infarct. Report Dictated By: Penelope Stratton MD at 05/16/2018 4:49 PM Report E-Signed By: ePnelope Stratton MD at 05/16/2018 4:51 PM WSN:[id number]
== END ==
LOC: CT 01:24
PROVIDERS: ATTEND Family Medicine
DX: F07.81 Postconcussional syndrome (principal)
CPT/HCPCS: 70450

== ENCOUNTER 2018-05-17 16:51 | Emergency (ER) | payer MEDICAID, OTHER ==
[2017-07-05 12:46] VITALS: Wt 113.5 kg
--- NOTE | 2018-05-17 16:53 | ER Report ---
History and Physical Time Seen By MD: 16:53 (BISI WHEELER DO) HPI/ROS CHIEF COMPLAINT: fluttering in chest HISTORY OF PRESENT ILLNESS: PT here for evaluation of chest fluttering. States since last night he has been feeling a constant fluttering in his chest that makes him feel uncomfortable. At times sob. no diaphoresis. Pt used nitro without any relief. Pt went to pcp and was sent to the emergency department for further evaluatoin. Pt does have afib. Pt is not on any blood thinners accept for occasional aspirin due to prior gi bleed. no cough. REVIEW OF SYSTEMS: Constitutional: No fever, no chills. Eyes: No discharge. ENT: No sore throat. Cardiovascular: + chest pain, + palpitations. Respiratory: No cough, no shortness of breath. Gastrointestinal: No abdominal pain, no vomiting. Genitourinary: No hematuria. Musculoskeletal: No back pain. Skin: No rashes. Neurological: No headache. (BISI WHEELER DO) Allergies: Coded Allergies: No Known Drug Allergies (Verified , 05/04/18) Home Meds Active Scripts Fluticasone Prop 50 Mcg Ns (FLONASE 50 MCG NS) 16 Gm [place].susp, 1 SPRAY NS BID, #1 BOT Prov:MARNICARMEN MOLASSES PREPARER 04/30/18 Reported Medications Furosemide (FUROSEMIDE) 20 Mg Tablet, 1 TAB PO Q6H, TAB 05/17/18 Pantoprazole Sodium (PANTOPRAZOLE SODIUM) 40 Mg Tablet.dr, 40 MG PO QODAY, TAB.SR 12/26/17 Nitroglycerin (NITROGLYCERIN) 0.4 Mg Tab.subl, 0.4 MG SL Q5MIN PRN for PAIN 05/29/17 Potassium Chloride (POTASSIUM CHLORIDE) 10 Meq Capsule.er, 10 MEQ PO QDAY 03/16/17 Allopurinol (ZYLOPRIM) 300 Mg Tablet, 300 MG PO QDAY, TAB 03/16/17 Fluticasone/Salmeterol (ADVAIR 250-50 DISKUS) 1 Each Disk.w.dev, 1 EACH IH BID 08/21/16 Discontinued Reported Medications [Diuretic] No Conflict Check 12/26/17 Past Medical/Surgical History Pmhx: afib, CHF, murmur, hypertension, obstructive sleep apnea, pneumonia, COPD, reflux, arthritis, pinky finger fracture, back pain, GI bleed Pshx: tonsillectomy. Pfhx: cancer, stroke, CAD, diabetes. (BISI WHEELER DO) Reviewed Nurses Notes: Yes Old Medical Records Reviewed: Yes (BISI WHEELER DO) Hx Smoking: No Smoking Status: Never Smoker Exposure to Second Hand Smoke?: Yes (father smoked cigars) Hx Substance Use Disorder: No Hx Alcohol Use: No (IBSI WHEELER DO) Constitutional Vital Sign - Last 24 Hours 05/17/18 05/17/18 05/17/18 05/17/18 16:51 16:57 16:58 17:00 Pulse ??? 55 Resp 18 B/P (MAP) 138/114 134/100 (111) 138/114 (122) Pulse Ox 89 O2 Delivery Nasal Cannula 05/17/18 05/17/18 05/17/18 05/17/18 17:06 17:15 17:16 17:21 Pulse 60 59 Resp 15 17 B/P (MAP) 116/74 (88) Pulse Ox 93 92 O2 Flow Rate 3.0 05/17/18 05/17/18 05/17/18 05/17/18 17:30 17:36 17:45 17:51 Pulse 61 61 Resp 21 21 B/P (MAP) 119/85 (96) 105/77 (86) Pulse Ox 92 92 05/17/18 05/17/18 05/17/18 05/17/18 18:00 18:06 18:15 18:21 Pulse 58 75 Resp 30 20 B/P (MAP) 123/92 (102) 118/74 (89) Pulse Ox 92 93 05/17/18 05/17/18 05/17/18 05/17/18 18:30 18:36 18:45 18:50 Pulse 70 67 B/P (MAP) 113/77 (89) 117/87 (97) Pulse Ox 92 93 05/17/18 05/17/18 05/17/18 05/17/18 19:00 19:05 19:15 19:20 Pulse 67 63 B/P (MAP) 111/83 (92) 114/76 (89) Pulse Ox 94 94 05/17/18 05/17/18 05/17/18 05/17/18 19:30 19:35 19:45 19:50 Pulse ??? 65 Resp 20 B/P (MAP) ???/??? (1665) 101/70 (80) Pulse Ox 92 05/17/18 05/17/18 05/17/18 05/17/18 20:00 20:05 20:15 20:20 Pulse 67 60 Resp 27 20 B/P (MAP) 108/72 (84) 108/81 (90) Pulse Ox 92 93 05/17/18 05/17/18 05/17/18 05/17/18 20:30 20:35 20:45 20:50 Pulse 60 58 Resp 7 17 B/P (MAP) 101/69 (80) 96/72 (80) Pulse Ox 94 94 05/17/18 05/17/18 05/17/18 05/17/18 21:00 21:05 21:15 21:20 Pulse 56 52 Resp 42 20 B/P (MAP) 104/80 (88) 104/63 (77) Pulse Ox 93 93 05/17/18 05/17/18 21:30 21:35 Pulse 62 Resp 13 B/P (MAP) 114/85 (95) Pulse Ox 91 ([facility] MD) Physical Exam General Appearance: The patient is alert, has no immediate need for airway prot ection and no signs of toxicity. Eyes: Pupils equal and round no pallor or injection, EOMI ENT: no pharyngeal erythema or exudates, Mucous membranes are moist Respiratory: There are no retractions, lungs are clear to auscultation. Cardiovascular: Regular rate and rhythm. pulses are equal and symmetrical Gastrointestinal: Abdomen is soft and non tender, no masses, bowel sounds normal, no guarding, no rigidity or rebound Neurological: Cranial nerves II-XII grossly intact, no sensory or motor loss Skin: Warm and dry, no rashes. Musculoskeletal: Neck is supple non tender, no vertebral tenderness Extremities are nontender, non swollen and have full range of motion. DIFFERENTIAL DIAGNOSIS: After history and physical exam differential diagnosis was considered for arrhythmia, electrolyte abnl, acs (LAURORA,BISI V DO) Medical Decision Making Data Points Result Diagram: 05/17/18 1715 05/17/18 171 Laboratory Hematology Test 05/17/18 17:15 05/17/18 20:55 Red Blood Count 5.04 M/uL (4.00-5.60) Mean Corpuscular Volume 96.7 fL (80.0-96.0) Mean Corpuscular Hemoglobin 32.4 pg (26.0-33.0) Mean Corpuscular Hemoglobin Concent 33.5 g/dL (32.0-36.0) Red Cell Distribution Width 16.7 % (11.5-14.5) Mean Platelet Volume 9.5 fL (7.2-11.1) Neutrophils (%) (Auto) 68.9 % (39.4-72.5) Lymphocytes (%) (Auto) 12.1 % (17.6-49.6) Monocytes (%) (Auto) 8.0 % (4.1-12.4) Eosinophils (%) (Auto) 9.8 % (0.4-6.7) Basophils (%) (Auto) 1.2 % (0.3-1.4) Nucleated RBC Relative Count (auto) 0.1 /100WBC Neutrophils # (Auto) 4.1 K/uL (2.0-7.4) Lymphocytes # (Auto) 0.7 K/uL (1.3-3.6) Monocytes # (Auto) 0.5 K/uL (0.3-1.0) Eosinophils # (Auto) 0.6 K/uL (0.0-0.5) Basophils # (Auto) 0.1 K/uL (0.0-0.1) Nucleated RBC Absolute Count (auto) 0.00 K/uL Prothrombin Time 14.7 seconds (12.0-14.4) Prothromb Time International Ratio 1.15 Activated Partial Thromboplast Time 34 seconds (23-35) Sodium Level 139 mmol/L (137-145) Potassium Level 4.3 mmol/L (3.5-5.0) Chloride Level 101 mmol/L (98-107) Carbon Dioxide Level 26 mmol/L (22-30) Blood Urea Nitrogen 30 mg/dl (9-21) Creatinine 1.30 mg/dl (0.66-1.25) Glomerular Filtration Rate Calc 55.6 Random Glucose 94 mg/dl (75-110) Calcium Level 8.8 mg/dl (8.4-10.2) Magnesium Level 2.3 mg/dl (1.7-2.2) Total Bilirubin 1.4 mg/dl (0.2-1.3) Aspartate Amino Transf (AST/SGOT) 27 U/L (0-35) Alanine Aminotransferase (ALT/SGPT) 30 U/L (0-56) Alkaline Phosphatase 162 U/L (0-126) Total Protein 7.4 g/dl (6.3-8.2) Albumin 3.9 g/dl (3.5-5.0) Troponin I 0.033 ng/ml Chemistry Test 05/17/18 17:15 05/17/18 20:55 White Blood Count 5.9 k/uL (4.5-11.0) Red Blood Count 5.04 M/uL (4.00-5.60) Hemoglobin 16.3 g/dL (14.0-18.0) Hematocrit 48.7 % (42.0-52.0) Mean Corpuscular Volume 96.7 fL (80.0-96.0) Mean Corpuscular Hemoglobin 32.4 pg (26.0-33.0) Mean Corpuscular Hemoglobin Concent 33.5 g/dL (32.0-36.0) Red Cell Distribution Width 16.7 % (11.5-14.5) Platelet Count 154 K/uL (150-450) Mean Platelet Volume 9.5 fL (7.2-11.1) Neutrophils (%) (Auto) 68.9 % (39.4-72.5) Lymphocytes (%) (Auto) 12.1 % (17.6-49.6) Monocytes (%) (Auto) 8.0 % (4.1-12.4) Eosinophils (%) (Auto) 9.8 % (0.4-6.7) Basophils (%) (Auto) 1.2 % (0.3-1.4) Nucleated RBC Relative Count (auto) 0.1 /100WBC Neutrophils # (Auto) 4.1 K/uL (2.0-7.4) Lymphocytes # (Auto) 0.7 K/uL (1.3-3.6) Monocytes # (Auto) 0.5 K/uL (0.3-1.0) Eosinophils # (Auto) 0.6 K/uL (0.0-0.5) Basophils # (Auto) 0.1 K/uL (0.0-0.1) Nucleated RBC Absolute Count (auto) 0.00 K/uL Prothrombin Time 14.7 seconds (12.0-14.4) Prothromb Time International Ratio 1.15 Activated Partial Thromboplast Time 34 seconds (23-35) Glomerular Filtration Rate Calc 55.6 Calcium Level 8.8 mg/dl (8.4-10.2) Magnesium Level 2.3 mg/dl (1.7-2.2) Total Bilirubin 1.4 mg/dl (0.2-1.3) Aspartate Amino Transf (AST/SGOT) 27 U/L (0-35) Alanine Aminotransferase (ALT/SGPT) 30 U/L (0-56) Alkaline Phosphatase 162 U/L (0-126) Total Protein 7.4 g/dl (6.3-8.2) Albumin 3.9 g/dl (3.5-5.0) Troponin I 0.033 ng/ml Coagulation Test 05/17/18 17:15 Prothrombin Time 14.7 seconds Prothromb Time International Ratio 1.15 Activated Partial Thromboplast Time 34 seconds (MARIELY CALDWELL MD) EKG/Imaging EKG Interpretation afib @ 64 with incomplete rbbb and non specific st abnormality; Pt does have pvcs; when compared to May 04 the PVc is new Imaging semi errect film may have caused limitation however pt has significant cardiomegally. had cardiomegally in prior imaging. awaiting radiology read. (BISI WHEELER DO) ED Course/Re-evaluation ED Course 05/17/2018 5:52:50 pm Pts labs are back. Trop is 0.033 which is at pts baseline when compared to prior visits. will keep for second troponin. Repeat ekg obtained and shows afib wtih slow ventricular response with incomplete av block. signed out to dr. caldwell pending second troponin 05/17/2018 6:01:55 pm Let pt know of need for second troponin. Pt is asking if he can have dinner while waiting. Will order him a tray. (BISI WHEELER DO) ED Course I assumed care of this patient after discussing with Dr. Wheeler at shift change. Feeling fluttering today, no longer with these symptoms. Concern by outpatient provider of ST elevation, but no sign of this on EKGs. Dis have i nitial PVCs on EKGs earlier, but none now. Having no change in Troponins from chronic and 4 hour repeat was negative as well. No changes to medications and instructed to follow-up with his regular doctor or private branch exchange repairer. Decision to Disposition Date: May 17, 2018 Decision to Disposition Time: 21:33 (MARIELY CALDWELL MD) Depart Departure Latest Vital Signs Vital Signs Date Time Temp Pulse Resp B/P (MAP) Pulse Ox O2 Delivery O2 Flow Rate FiO2 05/17/18 21:35 62 13 91 05/17/18 21:30 114/85 (95) 05/17/18 17:16 3.0 05/17/18 16:57 Nasal Cannula (MARIELY CALDWELL MD) Impression: Primary Impression: Intermittent palpitations Condition: Improved Disposition: HOME OR SELF-CARE Patient Instructions: A-fib (Atrial Fibrillation) (ED) Additional Instructions: No changes in your medicines at this time. Make a follow-up visit with your regular doctor or private branch exchange repairer in the next 5-7 days. BISI WHEELER DO May 17, 2018 16:53 MARIELY CALDWELL MD May 17, 2018 19:18
[2018-05-17] MEDS ORDERED: ASPIRIN 81 MG CHEW PO ONE (16:55)
--- NOTE | 2018-05-17 17:01 | EKG ---
FACILITY: [facility] PATIENT NAME: RABIA GOLDEN : [id number] MR: [id number] V: [id number] EXAM DATE: ORDERING PHYSICIAN: BISI GIORDANO TECHNOLOGIST: SABINE Mann Reason : CP Blood Pressure : / mmHG Vent. Rate : 066 BPM Atrial Rate : 060 BPM P-R Int : 000 ms QRS Dur : 108 ms QT Int : 416 ms P-R-T Axes : 000 133 -11 degrees QTc Int : 436 ms Atrial fibrillation with premature ventricular or aberrantly conducted complexes Right axis deviation Incomplete right bundle branch block Possible Right ventricular hypertrophy Nonspecific T wave abnormality , probably digitalis effect Abnormal ECG When compared with ECG of 04-MAY-2018 11:34, No significant change was found Confirmed by REED AMAYA ([id number]) on 05/17/2018 10:17:08 PM Referred By: GIULIANA Confirmed By:REED AMAYA
[2018-05-17] MEDS ORDERED: FURO-45 PO (17:10)
[2018-05-17 17:28] LABS: PLATELET COUNT, AUTOMATED 154 K/uL (150-450)
[2018-05-17 17:35] LABS: INR 1.15
--- NOTE | 2018-05-17 17:54 | EKG ---
FACILITY: [facility] [place] PATIENT NAME: RABIA GOLDEN : [id number] MR: [id number] V: [id number] EXAM DATE: ORDERING PHYSICIAN: BISI GIORDANO TECHNOLOGIST: SABINE Mann Reason : REPEAT CP Blood Pressure : / mmHG Vent. Rate : 052 BPM Atrial Rate : 375 BPM P-R Int : 000 ms QRS Dur : 102 ms QT Int : 480 ms P-R-T Axes : 000 129 -73 degrees QTc Int : 446 ms Atrial fibrillation with slow ventricular response Right axis deviation Incomplete right bundle branch block Possible Right ventricular hypertrophy Nonspecific ST and T wave abnormality , probably digitalis effect Abnormal ECG When compared with ECG of 17-MAY-2018 16:58, No significant change was found Confirmed by REED AMAYA ([id number]) on 05/17/2018 10:17:23 PM Referred By: ER Confirmed By:REED AMAYA
--- NOTE | 2018-05-17 18:07 | RADIOLOGY IMAGING REPORT ---
FACILITY: [facility] PATIENT NAME: Pascale Fink : 1955 MR: [id number] V: [id number] EXAM DATE: ORDERING PHYSICIAN: BISI GIORDANO TECHNOLOGIST: Location: [facility] [place] Patient: Pascale Fink : 1955 Visit/Account:[id number] Date of Sevice: 05/17/2018 EXAMINATION: Portable chest radiograph single view at 5:28 PM HISTORY: Chest pain. COMPARISON: 05/04/2018. FINDINGS: A single portable AP view of the chest is obtained. Lines/tubes: None. Lungs/pleura: There is blunting of the right lateral costophrenic sulcus. The left lateral costophre steve sulcus is outside the imaged field of view. There is new hazy opacity at the right lung base. Que stion increased left retrocardiac opacity. No evidence of pneumothorax. Heart: Unchanged moderate cardiomegaly. Mediastinum: Unchanged mediastinal contours. Bony structures/body wall: Negative. IMPRESSION: Unchanged moderate cardiomegaly. Blunting of the right lateral costophrenic sulcus suggestive of a small pleural effusion. Hazy opacity at the right lung base which could represent atelectasis or infiltrate. Question increas ed left retrocardiac opacification which could also represent atelectasis or infiltrate. Report Dictated By: Santana Escoto MD at 05/17/2018 5:59 PM Report E-Signed By: Santana Escoto MD at 05/17/2018 6:03 PM WSN:[id number]
[2018-05-17] MEDS ORDERED: ACETAMINOPHEN 500 MG TAB PO ONE (19:20)
--- NOTE | 2018-05-17 19:51 | RADIOLOGY IMAGING REPORT ---
[place] [facility] [place] NAME: Pascale iFnk : 1955 MR: [id number] V: [id number] EXAM DATE: ORDERING PHYSICIAN: BISI GIORDANO TECHNOLOGIST: Location: [facility] Patient: Pascale Fink : 1955 Visit/Account:[id number] Date of Sevice: 05/17/2018 2 VIEWS CHEST INDICATION: Question retrocardiac opacity on previous exam. COMPARISON: Portable x-ray done earlier in the day. FINDINGS: Cardiac silhouette remains enlarged but unchanged. Mediastinal silhouette is within normal limits. The central pulmonary vessels are prominent with distal tapering. There is no focal infiltrate or lobar consolidation. There is no pneumothorax or pleural effusion. Stable tiny nodule seen in the left upper lobe. No new nodules. Upper abdomen is unremarkable. No acute bony abnormality. IMPRESSION: 1. No acute cardiopulmonary process. No focal infiltrate. 2. Stable enlarged cardiac silhouette without discrete edema. 3. Prominent central pulmonary arteries with distal tapering. This nonspecific but could be due to pulmonary artery hypertension. Report Dictated By: Lucas Benito at 05/17/2018 7:45 PM Report E-Signed By: Lucas Benito at 05/17/2018 7:47 PM WSN:[id number]
--- NOTE | 2018-05-17 21:08 | EKG ---
FACILITY: [facility] PATIENT NAME: RABIA GOLDEN : [id number] MR: [id number] V: [id number] EXAM DATE: ORDERING PHYSICIAN: MARIELY THOMAS TECHNOLOGIST: MT Mann Reason : REPEAT EKG CP Blood Pressure : / mmHG Vent. Rate : 051 BPM Atrial Rate : 375 BPM P-R Int : 000 ms QRS Dur : 100 ms QT Int : 430 ms P-R-T Axes : 000 123 -69 degrees QTc Int : 396 ms Atrial fibrillation with slow ventricular response Right axis deviation Incomplete right bundle branch block Possible Right ventricular hypertrophy Nonspecific T wave abnormality , probably digitalis effect Abnormal ECG When compared with ECG of 17-MAY-2018 17:50, No significant change was found Confirmed by REED AMAYA ([id number]) on 05/17/2018 10:17:30 PM Referred By: Confirmed By:REED AMAYA
[2018-05-17 21:30] VITALS: BP 114/85
== END 2018-05-17 21:53 | disposition home or self-care (01) ==
LOC: ER 17:07
DX: R00.2 Palpitations (principal); I45.10 Unspecified right bundle-branch block; R94.31 Abnormal electrocardiogram [ECG] [EKG]
CPT/HCPCS: 36415; 71045; 71046; 82040; 82247; 82310; 82374; 82435; 82565; 82947; 83735; 84075; 84132; 84155; 84295; 84450; 84460; 84484; 84520; 85025; 85610; 85730; 93005; 99284

== ENCOUNTER 2018-08-22 12:08 | Emergency (ER) | payer MEDICAID ==
[2017-07-05 12:46] VITALS: Wt 113.4 kg
[~2018-08-22 12:08] MED LIST changes: -LOSA50TA74 PO; +LOSA50TA80 PO
--- NOTE | 2018-08-22 12:09 | ER Report ---
History and Physical Time Seen By MD: 12:09 HPI/ROS CHIEF COMPLAINT: Chest pain HISTORY OF PRESENT ILLNESS: Patient is a 62-year-old male with a history significant for congestive heart failure on Lasix, history of atrial fibrillation. Patient was taken off his anticoagulants several months ago due to gastrointestinal bleeding. Over the past week, patient reports having intermittent episodes of angina and mild shortness of breath. Today he started with right-sided chest pain which radiates to the left chest as well, shortness breath since proximally 7:00 this morning. Patient also notes having mild increase in bilateral lower extremity edema. Patient was concerned that he may have had a recurrent pulmonary embolism prompting evaluation. Patient denies prior history of cardiac catheterization or definitive diagnosis of ACS. Patient does report taking sublingual nitroglycerin times throughout the course in the morning getting mild relief of symptoms. REVIEW OF SYSTEMS: Constitutional: No fever, no chills. Eyes: No discharge. ENT: No sore throat. Cardiovascular: + chest pain, no palpitations. Respiratory: No cough, + shortness of breath. Gastrointestinal: No abdominal pain, no vomiting. Genitourinary: No hematuria. Musculoskeletal: No back pain. Skin: No rashes. Neurological: No headache. Allergies: Coded Allergies: No Known Drug Allergies (Verified , 08/22/18) Home Meds Reported Medications Potassium Chloride (POTASSIUM CHLORIDE) 10 Meq Tab.er.prt, 10 MEQ PO QDAY 08/22/18 Ferrous Sulfate (IRON) 325 Mg Tablet, 325 MG PO QDAY 08/22/18 Furosemide (LASIX) 20 Mg Tablet, 1 TAB PO QDAY, TAB 08/22/18 Pantoprazole Sodium (PANTOPRAZOLE SODIUM) 40 Mg Tablet.dr, 40 MG PO QODAY, TAB.SR 12/26/17 Nitroglycerin (NITROGLYCERIN) 0.4 Mg Tab.subl, 0.4 MG SL Q5MIN PRN for PAIN 05/29/17 Allopurinol (ZYLOPRIM) 300 Mg Tablet, 300 MG PO QDAY, TAB 03/16/17 Fluticasone/Salmeterol (ADVAIR 250-50 DISKUS) 1 Each Disk.w.dev, 1 EACH IH BID 08/21/16 Discontinued Reported Medications Furosemide (FUROSEMIDE) 20 Mg Tablet, 1 TAB PO Q6H, TAB 05/17/18 Potassium Chloride (POTASSIUM CHLORIDE) 10 Meq Capsule.er, 10 MEQ PO QDAY 03/16/17 Discontinued Scripts Fluticasone Prop 50 Mcg Ns (FLONASE 50 MCG NS) 16 Gm [place].susp, 1 SPRAY NS BID, #1 BOT Prov:CARMEN GRIDER DIVER PUMPER 04/30/18 Hx Smoking: No Smoking Status: Never Smoker Exposure to Second Hand Smoke?: Yes (father smoked cigars) Hx Substance Use Disorder: No Hx Alcohol Use: No Constitutional Vital Sign - Last 24 Hours 08/22/18 08/22/18 08/22/18 08/22/18 12:11 12:18 12:25 12:30 Temp 97.7 Pulse 75 Resp 18 B/P (MAP) 138/98 (111) 138/98 118/77 (91) Pulse Ox 91 O2 Delivery Nasal Cannula O2 Flow Rate 3.0 08/22/18 08/22/18 08/22/18 08/22/18 12:38 13:08 13:16 13:21 Pulse 72 74 68 Resp 21 19 B/P (MAP) 128/89 (102) Pulse Ox 88 89 O2 Delivery Nasal Cannula Nasal Cannula O2 Flow Rate 3 3 08/22/18 08/22/18 08/22/18 08/22/18 13:30 13:35 14:00 14:05 Pulse 81 72 Resp 15 58 B/P (MAP) 128/88 (101) 125/88 (100) Pulse Ox 86 87 O2 Delivery Nasal Cannula Nasal Cannula O2 Flow Rate 3 3 08/22/18 08/22/18 08/22/18 14:30 14:35 15:00 Pulse 73 Resp 18 B/P (MAP) 113/83 (93) 126/95 (105) Pulse Ox 90 O2 Delivery Nasal Cannula O2 Flow Rate 3 Physical Exam General Appearance: The patient is alert, has no immediate need for airway protection and no signs of toxicity. NAD Eyes: Pupils equal and round no pallor or injection. ENT, Mouth: Mucous membranes are moist. Respiratory: There are no retractions, lungs are clear to auscultation. Cardiovascular: Irregular rate/rhythm Gastrointestinal: Abdomen is soft and non tender, no masses, bowel sounds normal. Neurological: No focal neuro deficits Skin: Warm and dry, no rashes. Musculoskeletal: Neck is supple non tender. Extremities are nontender, + mild edema b/l DIFFERENTIAL DIAGNOSIS: After history and physical exam differential diagnosis was considered for chest pain including but not limited to myocardial ischemia, pericarditis pulmonary embolus, chest wall pain, pleural inflammation and pulmonary infectious causes. Medical Decision Making Data Points Result Diagram: 08/22/18 1212 08/22/18 1212 Laboratory Hematology Test 08/22/18 12:12 08/22/18 14:29 Red Blood Count 5.09 M/uL (4.00-5.60) Mean Corpuscular Volume 102.4 fL (80.0-96.0) Mean Corpuscular Hemoglobin 32.8 pg (26.0-33.0) Mean Corpuscular Hemoglobin Concent 32.0 g/dL (32.0-36.0) Red Cell Distribution Width 15.3 % (11.5-14.5) Mean Platelet Volume 9.0 fL (7.2-11.1) Neutrophils (%) (Auto) 67.5 % (39.4-72.5) Lymphocytes (%) (Auto) 12.0 % (17.6-49.6) Monocytes (%) (Auto) 8.5 % (4.1-12.4) Eosinophils (%) (Auto) 11.3 % (0.4-6.7) Basophils (%) (Auto) 0.7 % (0.3-1.4) Nucleated RBC Relative Count (auto) 0.1 /100WBC Neutrophils # (Auto) 4.0 K/uL (2.0-7.4) Lymphocytes # (Auto) 0.7 K/uL (1.3-3.6) Monocytes # (Auto) 0.5 K/uL (0.3-1.0) Eosinophils # (Auto) 0.7 K/uL (0.0-0.5) Basophils # (Auto) 0.0 K/uL (0.0-0.1) Nucleated RBC Absolute Count (auto) 0.01 K/uL Peripheral Blood Smear Yes Y/N Sodium Level 139 mmol/L (137-145) Potassium Level 4.7 mmol/L (3.5-5.0) Chloride Level 105 mmol/L (98-107) Carbon Dioxide Level 26 mmol/L (22-30) Blood Urea Nitrogen 33 mg/dl (9-21) Creatinine 1.30 mg/dl (0.66-1.25) Glomerular Filtration Rate Calc 55.6 Random Glucose 92 mg/dl (75-110) Calcium Level 9.3 mg/dl (8.4-10.2) Total Bilirubin 2.3 mg/dl (0.2-1.3) Aspartate Amino Transf (AST/SGOT) 32 U/L (0-35) Alanine Aminotransferase (ALT/SGPT) 19 U/L (0-56) Alkaline Phosphatase 179 U/L (0-126) B-Type Natriuretic Peptide 217 pg/ml (0-100) Total Protein 7.7 g/dl (6.3-8.2) Albumin 4.2 g/dl (3.5-5.0) Troponin I 0.025 ng/ml Chemistry Test 08/22/18 12:12 08/22/18 14:29 White Blood Count 6.0 k/uL (4.5-11.0) Red Blood Count 5.09 M/uL (4.00-5.60) Hemoglobin 16.7 g/dL (14.0-18.0) Hematocrit 52.1 % (42.0-52.0) Mean Corpuscular Volume 102.4 fL (80.0-96.0) Mean Corpuscular Hemoglobin 32.8 pg (26.0-33.0) Mean Corpuscular Hemoglobin Concent 32.0 g/dL (32.0-36.0) Red Cell Distribution Width 15.3 % (11.5-14.5) Platelet Count 147 K/uL (150-450) Mean Platelet Volume 9.0 fL (7.2-11.1) Neutrophils (%) (Auto) 67.5 % (39.4-72.5) Lymphocytes (%) (Auto) 12.0 % (17.6-49.6) Monocytes (%) (Auto) 8.5 % (4.1-12.4) Eosinophils (%) (Auto) 11.3 % (0.4-6.7) Basophils (%) (Auto) 0.7 % (0.3-1.4) Nucleated RBC Relative Count (auto) 0.1 /100WBC Neutrophils # (Auto) 4.0 K/uL (2.0-7.4) Lymphocytes # (Auto) 0.7 K/uL (1.3-3.6) Monocytes # (Auto) 0.5 K/uL (0.3-1.0) Eosinophils # (Auto) 0.7 K/uL (0.0-0.5) Basophils # (Auto) 0.0 K/uL (0.0-0.1) Nucleated RBC Absolute Count (auto) 0.01 K/uL Peripheral Blood Smear Yes Y/N Glomerular Filtration Rate Calc 55.6 Calcium Level 9.3 mg/dl (8.4-10.2) Total Bilirubin 2.3 mg/dl (0.2-1.3) Aspartate Amino Transf (AST/SGOT) 32 U/L (0-35) Alanine Aminotransferase (ALT/SGPT) 19 U/L (0-56) Alkaline Phosphatase 179 U/L (0-126) B-Type Natriuretic Peptide 217 pg/ml (0-100) Total Protein 7.7 g/dl (6.3-8.2) Albumin 4.2 g/dl (3.5-5.0) Troponin I 0.025 ng/ml EKG/Imaging EKG Interpretation Test Reason : Blood Pressure : / mmHG Vent. Rate : 071 BPM Atrial Rate : 073 BPM P-R Int : 000 ms QRS Dur : 104 ms QT Int : 412 ms P-R-T Axes : 000 132 -36 degrees QTc Int : 447 ms Atrial fibrillation with a competing junctional pacemaker Right axis deviation Incomplete right bundle branch block Possible Right ventricular hypertrophy Nonspecific T wave abnormality , probably digitalis effect Abnormal ECG No previous ECGs available Referred By: Confirmed By: Imaging Location: [facility] [place] Patient: Pascale Fink : 1955 Visit/Account:[id number] Date of Sevice: 08/22/2018 EXAMINATION: Right LOWER EXTREMITY VENOUS DOPPLER ULTRASOUND DATE: 08/22/2018 2:53 PM CLINICAL INFORMATION: US REASON FOR STUDY: Right calf pain TECHNIQUE: Grayscale, color Doppler, and spectral Doppler ultrasound was performed of the lower extremity veins to evaluate for deep venous thrombosis. COMPARISON: None FINDINGS: The right common femoral, femoral, and popliteal veins are compressible with normal flow on color Doppler imaging. There is also normal Doppler flow of the profunda femoris and greater saphenous veins at the confluence with the common femoral vein. The right posterior tibial and peroneal veins demonstrate normal flow The contralateral left common femoral vein demonstrates normal flow on color Doppler and respiratory variations on spectral Doppler. IMPRESSION: No evidence of deep venous thrombosis in the right lower extremity veins. CT CTA CHEST W & W/O CON HISTORY: Right sided chest pain ADDITIONAL HISTORY: None. TECHNIQUE: CTA chest with intravenous contrast. Axial imaging acquired following administration of IV contrast timed for maximum opacification of the pulmonary arterial vasculature. Slab 3-D MIP reconstructed images were also created for further evaluation and interpretation. Reconstruction of the source data set includes multiplanar 2-D in the sagittal and coronal planes and 3-D reconstructed coronal slab MIP series. 3-D images were created by the technologist.Dose Lowering Technique One of the following dose optimization techniques was utilized in the performance of this exam: Automated exposure control; adjustment of the mA and/o r kV according to the patient's size; or use of an iterative reconstruction technique. Specific details can be referenced in the facility's radiology CT exam operational policy. CONTRAST: 100 mL Isovue-370 COMPARISON: June 08, 2017 FINDINGS: Lungs/pleura: There is a small posterior layering right pleural effusion that is partially decreased in size when compared to the prior study. There is a small amount of chronic airspace consolidation the right lower lobe that appears similar to the prior study likely chronic atelectasis. Heart/vessels: The subsegmental arterial branches within the right left pulmonary arterial tree are not ideally opacified with contrast although there is no evidence of pulmonary emboli to the central pulmonary arteries nor to the lobar or segmental branches. Again noted is marked enlargement of the pulmonary trunk which is further increase in size now measures 6.3 cm in diameters opposed to 5.8 cm previously. Prominent enlargement of the right heart and straightening of the interventricular septum is also more prominent when compared to the prior study. Pericardial effusion has also increased and now appears moderate. There is exaggerated reflux of contrast into the IVC and hepatic veins Mediastinum/lymph nodes: Negative. Visualized upper abdomen: Small volume of ascites appears similar to the prior study. Bones/soft tissues: There spondylotic changes of the thoracic spine and visualized lower cervical spine Additional findings: None IMPRESSION: There is no evidence of pulmonary emboli to the segmental level. The subsegmental arterial branches are not ideally opacified with contrast There is been further dilatation of the pulmonary trunk and further enlargement of the right heart when compared to the prior study. Also noted is reflux of contrast into the IVC and hepatic veins. Pericardial effusion is increasing in size and now appears moderate. Finds are consistent with pulmonary arterial hypertension and concerning for right heart strain. Small right pleural effusion slightly decreased in size. Chronic atelectasis the right lower lobe is unchanged Small volume of ascites in the upper abdomen relatively unchanged ED Course/Re-evaluation ED Course Patient is a 62-year-old male here with complaints of right-sided chest pain which has been present since approximately 7:00 this morning and intermittently present for the past week, shortness breath, increased lower extremity edema bilaterally, right calf pain. Patient does have a history of pulmonary embolism, congestive heart failure on Lasix. Patient had been taking nitroglycerin sublingual throughout the course in the morning giving him mild to moderate relief however patient was given Nitropaste at time of evaluation. Patient also reports that several months ago he was taken off of his anticoagulant due to rectal bleeding raising concern for pulmonary embolism recurrence or DVT. Due to the patient's clinical status, decision was made to complete duplex imaging of the right lower extremity and CT pulmonary embolism study to evaluate for clot. Labs were found to be stable. Initial troponin was indeterminate today developed a 2 hour troponin was completed and was unchanged. CT a of the chest was completed which showed no pulmonary embolisms. Patient does of pleural effusion which was present previously, mildly increased in size and patient's pulmonary hypertension is likely worsened. I advised the patient to follow-up with his PCP in the next 24-48 hours to discuss this with his family doctor. Duplex was completed of the right lower extremity due to patient's complaint of calf pain which showed no sign of DVT. I updated the patient regarding these findings and he voiced understanding. Patient will follow up closely with PCP. Return precautions were provided Decision to Disposition Date: Aug 22, 2018 Decision to Disposition Time: 15:36 Depart Departure Latest Vital Signs Vital Signs Date Time Temp Pulse Resp B/P (MAP) Pulse Ox O2 Delivery O2 Flow Rate FiO2 08/22/18 15:00 126/95 (105) 08/22/18 14:35 73 18 90 Nasal Cannula 3 08/22/18 12:18 97.7 Impression: Primary Impression: Chest pain Additional Impression: CHF exacerbation Condition: Improved Disposition: HOME OR SELF-CARE Patient Instructions: Chest Pain (ED) Additional Instructions: Please follow-up in the next couple days with your family doctor. Please return immediately if you develop worsening symptoms, difficulty breathing, fevers, chills, weakness. Please continue your medications as prescribed. Problem Qualifiers BATOOL CHAKRABORTY DO Aug 22, 2018 12:09
[2018-08-22] MEDS ORDERED: FERR325T24 PO (12:25)
[2018-08-22] MEDS ORDERED: FURO20TA19 PO (12:25)
[2018-08-22] MEDS ORDERED: POTA-53 PO (12:25)
[2018-08-22] MEDS ORDERED: NITROGLYCERIN OINT 1 GM PKT TP ONE (12:25)
[2018-08-22 12:31] LABS: PLATELET COUNT, AUTOMATED 147 K/uL (150-450)
[2018-08-22] MEDS ORDERED: IOPAMIDOL 76% 100 ML INFUS BTL 100 ML ONE (12:33)
[2018-08-22] MEDS ORDERED: NS(*) 0.9% 50 ML BAG 50 ML ONE (12:33)
--- NOTE | 2018-08-22 12:46 | EKG ---
FACILITY: [facility] PATIENT NAME: RABIA GOLDEN : [id number] MR: [id number] V: [id number] EXAM DATE: ORDERING PHYSICIAN: BATOOL CHAKRABORTY TECHNOLOGIST: Test Reason : Blood Pressure : / mmHG Vent. Rate : 071 BPM Atrial Rate : 073 BPM P-R Int : 000 ms QRS Dur : 104 ms QT Int : 412 ms P-R-T Axes : 000 132 -36 degrees QTc Int : 447 ms Atrial fibrillation with a competing junctional pacemaker Right axis deviation Incomplete right bundle branch block Possible Right ventricular hypertrophy Nonspecific T wave abnormality , probably digitalis effect Abnormal ECG No previous ECGs available Confirmed by REED AMAYA ([id number]) on 08/22/2018 9:00:53 PM Referred By: Confirmed By:REED AMAYA
[2018-08-22] MEDS ORDERED: fentaNYL CITR 100 MCG/2 ML AMP IVP ONE (13:20)
[2018-08-22] MEDS ORDERED: NS(*) 0.9% 500 ML BAG 500 ML IV ONE (13:20)
--- NOTE | 2018-08-22 13:59 | RADIOLOGY IMAGING REPORT ---
FACILITY: [facility] PATIENT NAME: Pascale Fink : 1955 MR: [id number] V: [id number] EXAM DATE: ORDERING PHYSICIAN: BATOOL CHAKRABORTY TECHNOLOGIST: Location: [facility] [place] Patient: Pascale Fink : 1955 Visit/Account:[id number] Date of Sevice: 08/22/2018 CT CTA CHEST W & W/O CON HISTORY: Right sided chest pain ADDITIONAL HISTORY: None. TECHNIQUE: CTA chest with intravenous contrast. Axial imaging acquired following administration of IV contrast timed for maximum opacification of the pulmonary arterial vasculature. Slab 3-D MIP urban nstructed images were also created for further evaluation and interpretation. Reconstruction of the [facility] data set includes multiplanar 2-D in the sagittal and coronal planes and 3-D reconstructed srinivasa nal slab MIP series. 3-D images were created by the technologist.Dose Lowering Technique One of the following dose optimization techniques was utilized in the performance of this exam: Autom ated exposure control; adjustment of the mA and/or kV according to the patient's size; or use of an i terative reconstruction technique. Specific details can be referenced in the facility's radiology C T exam operational policy. CONTRAST: 100 mL Isovue-370 COMPARISON: June 08, 2017 FINDINGS: Lungs/pleura: There is a small posterior layering right pleural effusion that is partially decreased in size when compared to the prior study. There is a small amount of chronic airspace consolidation the right lower lobe that appears similar to the prior study likely chronic atelectasis. Heart/vessels: The subsegmental arterial branches within the right left pulmonary arterial tree are not ideally opacified with contrast although there is no evidence of pulmonary emboli to the central pulmonary arteries nor to the lobar or segmental branches. Again noted is marked enlargement of the pulmonary trunk which is further increase in size now measures 6.3 cm in diameters opposed to 5.8 cm previously. Prominent enlargement of the right heart and straightening of the interventricular sept um is also more prominent when compared to the prior study. Pericardial effusion has also increased and now appears moderate. There is exaggerated reflux of contrast into the IVC and hepatic veins Mediastinum/lymph nodes: Negative. Visualized upper abdomen: Small volume of ascites appears similar to the prior study. Bones/soft tissues: There spondylotic changes of the thoracic spine and visualized lower cervical sp ine Additional findings: None IMPRESSION: There is no evidence of pulmonary emboli to the segmental level. The subsegmental arterial branches are not ideally opacified with contrast There is been further dilatation of the pulmonary trunk and further enlargement of the right heart wh en compared to the prior study. Also noted is reflux of contrast into the IVC and hepatic veins. Pe ricardial effusion is increasing in size and now appears moderate. Finds are consistent with pulmona ry arterial hypertension and concerning for right heart strain. Small right pleural effusion slightly decreased in size. Chronic atelectasis the right lower lobe is unchanged Small volume of ascites in the upper abdomen relatively unchanged Report Dictated By: Catrina Carbajal MD at 08/22/2018 1:40 PM Report E-Signed By: Catrina Carbajal MD at 08/22/2018 1:54 PM WSN:[id number]
[2018-08-22 15:00] VITALS: BP 126/95
--- NOTE | 2018-08-22 15:00 | RADIOLOGY IMAGING REPORT ---
FACILITY: [facility] - [place] PATIENT NAME: Pascale Fink : 1955 MR: [id number] V: [id number] EXAM DATE: ORDERING PHYSICIAN: BATOOL CHAKRABORTY TECHNOLOGIST: Location: [facility] Patient: Pascale Fink : 1955 Visit/Account:[id number] Date of Sevice: 08/22/2018 EXAMINATION: Right LOWER EXTREMITY VENOUS DOPPLER ULTRASOUND DATE: 08/22/2018 2:53 PM CLINICAL INFORMATION: US REASON FOR STUDY: Right calf pain TECHNIQUE: Grayscale, color Doppler, and spectral Doppler ultrasound was performed of the lower extre mity veins to evaluate for deep venous thrombosis. COMPARISON: None FINDINGS: The right common femoral, femoral, and popliteal veins are compressible with normal flow on color Dop pler imaging. There is also normal Doppler flow of the profunda femoris and greater saphenous veins a t the confluence with the common femoral vein. The right posterior tibial and peroneal veins demonstrate normal flow The contralateral left common femoral vein demonstrates normal flow on color Doppler and respiratory variations on spectral Doppler. IMPRESSION: No evidence of deep venous thrombosis in the right lower extremity veins. Report Dictated By: Aaron Painter MD at 08/22/2018 2:53 PM Report E-Signed By: Aaron Painter MD at 08/22/2018 2:55 PM WSN:[id number]
== END 2018-08-22 15:42 | disposition home or self-care (01) ==
LOC: ER 12:29
DX: R07.9 Chest pain, unspecified (principal); I50.9 Heart failure, unspecified; I48.91 Unspecified atrial fibrillation
CPT/HCPCS: 36415; 71275; 83880; 84484; 85025; 93005; 93971; 96361; 96374; 99284; J3010; J7040; J7050; Q9967; 82040; 82247; 82310; 82374; 82435; 82565; 82947; 84075; 84132; 84155; 84295; 84450; 84460; 84520

== ENCOUNTER 2018-10-24 18:28 | Emergency (ER) | payer MEDICAID ==
[2017-07-05 12:46] VITALS: Wt 113.4 kg
[~2018-10-24 18:28] MED LIST changes: +FERR325T24 PO; +POTA-53 PO; -ROS10 PO; +ROSU10TA PO
--- NOTE | 2018-10-24 18:41 | ER Report ---
History and Physical Time Seen By MD: 18:40 (BAIRON WASHINGTON LOAN SERVICING OFFICER-) HPI/ROS CHIEF COMPLAINT: Intermittent chest pain, concerned about a DVT and changes in toe color. HISTORY OF PRESENT ILLNESS: This is a 63-year-old male presents to emergency department for concerns with intermittent chest pain, question of DVT in his right lower leg and changes in toe color. Patient states over the last couple weeks he's had intermittent chest pain, usually when he is waking up in the morning, he'll states that over the last couple of days he's had increased swelling and pain to the right lower leg, is also noted that his lower extremit ies bilaterally have increased swelling as well as black toes on both feet. The patient states he's noticed the color changes in his toes over the last week or so, he has not contacted his primary care provider. He denies fevers or chills. No nausea or vomiting. No rashes. No headaches. No visual changes. REVIEW OF SYSTEMS: Constitutional: No fever, no chills. Eyes: No discharge. ENT: No sore throat. Cardiovascular: As above. Respiratory: As above. Gastrointestinal: No abdominal pain, no vomiting. Genitourinary: No hematuria. Musculoskeletal: As above. Skin: As above. Neurological: No headache. [facility] Allergies: Coded Allergies: No Known Drug Allergies (Verified , 08/22/18) Home Meds Active Scripts Cephalexin Monohydrate (CEPHALEXIN) 500 Mg Cap, 500 MG PO TID for infection, #30 CAP TAKE 1 CAPSULE BY MOUTH EVERY SIX HOURS Prov:RANJIT SIMON DO 10/24/18 Reported Medications Potassium Chloride (POTASSIUM CHLORIDE) 10 Meq Tab.er.prt, 10 MEQ PO QDAY 08/22/18 Ferrous Sulfate (IRON) 325 Mg Tablet, 325 MG PO QDAY 08/22/18 Furosemide (LASIX) 20 Mg Tablet, 1 TAB PO QDAY, TAB 08/22/18 Pantoprazole Sodium (PANTOPRAZOLE SODIUM) 40 Mg Tablet.dr, 40 MG PO QODAY, TAB.SR 12/26/17 Nitroglycerin (NITROGLYCERIN) 0.4 Mg Tab.subl, 0.4 MG SL Q5MIN PRN for PAIN 05/29/17 Allopurinol (ZYLOPRIM) 300 Mg Tablet, 300 MG PO QDAY, TAB 03/16/17 Fluticasone/Salmeterol (ADVAIR 250-50 DISKUS) 1 Each Disk.w.dev, 1 EACH IH BID 08/21/16 Past Medical/Surgical History The patient has a past medical and surgical history of concussion, congestive heart failure, murmur, atrial fibrillation, hypertension, obstructive sleep apnea, continues use of oxygen, pneumonia, pulmonary emboli, COPD, GERD, arthritis, pinky fracture, vertebral bone spurs, dislocated vertebrae, tonsillectomy. (BAIRON WASHINGTONP-) Reviewed Nurses Notes: Yes (BAIRON WASHINGTONP-[facility]FF[facility]) Hx Smoking: No Smoking Status: Never Smoker Exposure to Second Hand Smoke?: Yes (father smoked cigars) Hx Substance Use Disorder: No Hx Alcohol Use: No (BAIRON WASHINGTON) Constitutional Vital Sign - Last 24 Hours 10/24/18 10/24/18 10/24/18 10/24/18 18:43 18:43 18:58 18:58 Temp 98.8 Pulse 85 72 81 Resp 16 B/P (MAP) 127/5 Pulse Ox 92 82 89 O2 Delivery Room Air O2 Flow Rate 3.0 10/24/18 10/24/18 10/24/18 10/24/18 19:13 19:28 19:43 19:58 Pulse 68 70 76 71 Pulse Ox 89 87 87 86 10/24/18 10/24/18 10/24/18 10/24/18 20:13 20:18 20:33 20:48 Pulse 69 68 66 63 Pulse Ox 89 90 90 89 10/24/18 10/24/18 10/24/18 10/24/18 20:53 21:15 21:23 21:27 Pulse 66 64 B/P (MAP) 129/87 (101) 114/80 (91) Pulse Ox 90 91 10/24/18 10/24/18 10/24/18 10/24/18 21:30 21:38 21:53 22:00 Pulse 66 62 B/P (MAP) 119/84 (96) 120/80 (93) Pulse Ox 92 92 10/24/18 22:08 Pulse 62 Pulse Ox 90 (RANJIT SIMON DO) Physical Exam General Appearance: The patient is alert, has no immediate need for airway protection and no signs of toxicity. Eyes: Pupils equal and round no pallor or injection. ENT, Mouth: Mucous membranes are moist. Respiratory: There are no retractions, lungs are clear to auscultation. Cardiovascular: Irregular rate and rhythm, faint systolic murmur, no clicks or r ubs. Gastrointestinal: Abdomen is round, soft and non tender, no masses, bowel sounds normal. Neurological: Alert and oriented 4. Moving all extremities. Following all commands. No focal neuro deficits. Skin: Dusky to blackish colored to the superior aspect of all toes toes, bilaterally. Sensation intact, dorsalis pedis pulses present bilaterally. Right anterior lower extremity mildly swollen with mild erythema, varicosities noted. Mild right calf pain. Musculoskeletal: Neck is supple non tender. Extremities mild right calf pain with some swelling to the anterior surface of the right lower extremity, mild erythema noted. DIFFERENTIAL DIAGNOSIS: After history and physical exam differential diagnosis was considered for DVT, pulmonary embolus, peripheral vascular disease, cellulitis, diabetes, neuropathy. (BAIRON WASHINGTON [facility]) Medical Decision Making Data Points Result Diagram: 10/24/18191910/24/181919 Laboratory Hematology Test 10/24/18 19:20 Red Blood Count 4.92 M/uL (4.00-5.60) Mean Corpuscular Volume 98.3 fL (80.0-96.0) Mean Corpuscular Hemoglobin 32.8 pg (26.0-33.0) Mean Corpuscular Hemoglobin Concent 33.3 g/dL (32.0-36.0) Red Cell Distribution Width 15.5 % (11.5-14.5) Mean Platelet Volume 10.1 fL (7.2-11.1) Neutrophils (%) (Auto) 70.4 % (39.4-72.5) Lymphocytes (%) (Auto) 10.5 % (17.6-49.6) Monocytes (%) (Auto) 9.7 % (4.1-12.4) Eosinophils (%) (Auto) 8.7 % (0.4-6.7) Basophils (%) (Auto) 0.7 % (0.3-1.4) Nucleated RBC Relative Count (auto) 0.0 /100WBC Neutrophils # (Auto) 4.3 K/uL (2.0-7.4) Lymphocytes # (Auto) 0.6 K/uL (1.3-3.6) Monocytes # (Auto) 0.6 K/uL (0.3-1.0) Eosinophils # (Auto) 0.5 K/uL (0.0-0.5) Basophils # (Auto) 0.0 K/uL (0.0-0.1) Nucleated RBC Absolute Count (auto) 0.00 K/uL Sodium Level 138 mmol/L (137-145) Potassium Level 4.1 mmol/L (3.5-5.0) Chloride Level 102 mmol/L (98-107) Carbon Dioxide Level 29 mmol/L (22-30) Blood Urea Nitrogen 35 mg/dl (9-21) Creatinine 1.20 mg/dl (0.66-1.25) Glomerular Filtration Rate Calc > 60.0 Random Glucose 102 mg/dl (75-110) Calcium Level 8.9 mg/dl (8.4-10.2) Total Bilirubin 1.4 mg/dl (0.2-1.3) Aspartate Amino Transf (AST/SGOT) 28 U/L (0-35) Alanine Aminotransferase (ALT/SGPT) 20 U/L (0-56) Alkaline Phosphatase 186 U/L (0-126) Troponin I 0.034 ng/ml Total Protein 7.6 g/dl (6.3-8.2) Albumin 4.2 g/dl (3.5-5.0) Chemistry Test 10/24/18 19:20 White Blood Count 6.2 k/uL (4.5-11.0) Red Blood Count 4.92 M/uL (4.00-5.60) Hemoglobin 16.1 g/dL (14.0-18.0) Hematocrit 48.4 % (42.0-52.0) Mean Corpuscular Volume 98.3 fL (80.0-96.0) Mean Corpuscular Hemoglobin 32.8 pg (26.0-33.0) Mean Corpuscular Hemoglobin Concent 33.3 g/dL (32.0-36.0) Red Cell Distribution Width 15.5 % (11.5-14.5) Platelet Count 152 K/uL (150-450) Mean Platelet Volume 10.1 fL (7.2-11.1) Neutrophils (%) (Auto) 70.4 % (39.4-72.5) Lymphocytes (%) (Auto) 10.5 % (17.6-49.6) Monocytes (%) (Auto) 9.7 % (4.1-12.4) Eosinophils (%) (Auto) 8.7 % (0.4-6.7) Basophils (%) (Auto) 0.7 % (0.3-1.4) Nucleated RBC Relative Count (auto) 0.0 /100WBC Neutrophils # (Auto) 4.3 K/uL (2.0-7.4) Lymphocytes # (Auto) 0.6 K/uL (1.3-3.6) Monocytes # (Auto) 0.6 K/uL (0.3-1.0) Eosinophils # (Auto) 0.5 K/uL (0.0-0.5) Basophils # (Auto) 0.0 K/uL (0.0-0.1) Nucleated RBC Absolute Count (auto) 0.00 K/uL Glomerular Filtration Rate Calc > 60.0 Calcium Level 8.9 mg/dl (8.4-10.2) Total Bilirubin 1.4 mg/dl (0.2-1.3) Aspartate Amino Transf (AST/SGOT) 28 U/L (0-35) Alanine Aminotransferase (ALT/SGPT) 20 U/L (0-56) Alkaline Phosphatase 186 U/L (0-126) Troponin I 0.034 ng/ml Total Protein 7.6 g/dl (6.3-8.2) Albumin 4.2 g/dl (3.5-5.0) (RANJIT SIMON DO) EKG/Imaging EKG Interpretation 12 lead EKG: Time of EKG 1911. Rhythm: Atrial fibrillation, ventricular rate 69 bpm. [place]: normal QRS: normal ST segments: No ST depression or elevation identified. No significant differences from the 08/22/2018 EKG. (BAIRON WASHINGTON [employer]IC[employer] OFFICER-) Imaging Results: Ultrasound of the lower extremity arterial ultrasound was obtained. The results of the study are EXAMINATION: US VENOUS LOWER EXT RT COMPARISON: Ultrasound 08/22/2018. HISTORY: Right lower extremity pain and redness. FINDINGS: Standard right lower extremity Doppler ultrasound with color flow and spectral analysis is performed. The common femoral, femoral, and popliteal veins are widely patent and compress appropriately. The visualized calf veins and the proximal greater saphenous vein are patent. No popliteal fluid collection. The contralateral common femoral vein is patent. IMPRESSION: No right lower extremity deep venous thrombosis. Ultrasound bilateral lower extremity arterial duplex Doppler, color Doppler, and spectral analysis. History: Dusky toes. Comparison studies: No relevant priors. Findings: Right lower extremity- FRUIT LOADER MACHINE OPERATOR: Patent and triphasic with PSV of 116 cm/s. Profunda femoris: Patent and triphasic with PSV of 77 cm/s. SFA proximal: Patent and triphasic with PSV of 118 cm/s. SFA mid: Patent and triphasic with PSV of 108 cm/s. SFA distal: Patent and triphasic with PSV of 61 cm/s. Popliteal: Patent and triphasic with PSV of 71 cm/s. TEMPLATE WORKER proximal: Patent and triphasic with PSV of 76 cm/s. TEMPLATE WORKER mid: Patent and triphasic with PSV of 103 cm/s. TEMPLATE WORKER distal: Patent and triphasic with PSV of 98 cm/s. JOON: Patent and triphasic with PSV of 66 cm/s. Dorsalis pedis: Patent and triphasic with PSV of 67 cm/s. Left lower extremity- FRUIT LOADER MACHINE OPERATOR: Patent and triphasic with PSV of 101 cm/s. Profunda femoris: Patent and triphasic with PSV of 59 cm/s. SFA proximal: Patent and triphasic with PSV of 122 cm/s. SFA mid: Patent and triphasic with PSV of 102 cm/s. SFA distal: Patent and triphasic with PSV of 66 cm/s. Popliteal: Patent and triphasic with PSV of 67 cm/s. TEMPLATE WORKER proximal: Patent and triphasic with PSV of 80 cm/s. TEMPLATE WORKER mid: Patent and triphasic with PSV of 72 cm/s. TEMPLATE WORKER distal: Patent and triphasic with PSV of 84 cm/s. JOON: Patent and triphasic with PSV of 68 cm/s. Dorsalis pedis: Patent and triphasic with PSV of 85 cm/s. IMPRESSION: No definite acute abnormality or significant atherosclerosis of the arterial supply to the lower extremities. The study was read by the radiologist. I viewed the images myself on the PACS system. Results: CT scan of the CTA chest pulmonary angiogram was obtained. The results of the study are CT PE DATE: 10/24/2018 9:27 PM INDICATION: Short of breath, history of thrombus. COMPARISON: 08/22/2018 and previous. TECHNIQUE: Axial CT angiogram was obtained through the chest with intravenous c ontrast. Sagittal and coronal MPR and MIP coronal reformations were also generated. 100 mL isovue 370. One of the following dose optimization techniques was utilized in the performance of this exam: Automated exposure control; adjustment of the mA and/or kV according to the patient's size; or use of an iterative reconstruction technique. Specific details can be referenced in the facility's radiology CT exam operational policy. FINDINGS: Thyroid / Thoracic Inlet: No visualized thyroid nodule or supraclavicular lymphadenopathy. Pulmonary Arteries: Pulmonary arteries are enlarged, similar in appearance to prior. Peripheral calcifications along the pulmonary arteries bilaterally may be related to prior pulmonary emboli. No apparent acute pulmonary embolism. Heart and Aorta: Persistent enlargement of the heart, particularly the right atrium and ventricle. There is again reflux of contrast into the inferior vena cava and hepatic veins. Moderate volume of pericardial fluid similar to prior. Nonaneurysmal aorta with mild calcification. Mediastinum and Ariana: No lymphadenopathy. No adenopathy. Lungs and Pleura: Trace right pericardial fluid. Subpleural micronodules in the left lower lobe are unchanged compared to June 2017 and do not require follow-up. Trace right pleural effusion. Breast and Axilla: No axillary lymphadenopathy. Upper Abdomen: Scvkn-ru-sbdvrptz volume ascites. Bones and Soft Tissues: No suspicious osseous or soft tissue abnormality. IMPRESSION: 1. No pulmonary aneurysm. 2. Persistent enlargement of the pulmonary arteries, enlargement of the right side of the heart, reflux of contrast in the IVC and hepatic veins, and moderate volume pericardial effusion. These are all similar in appearance to August and are suspicious for pulmonary arterial hypertension and right heart strain/failure. 3. Trace right pleural effusion. 4. Jgwbo-jo-uasydkrl volume ascites. The study was read by the radiologist. I viewed the images myself on the PACS system. (RANJIT SIMON DO) ED Course/Re-evaluation Clinical Indication for ER IV: IV Access ED Course The patient was admitted to room. A history of disc or obtained. Differential diagnoses were considered. An IV was started. A CBC, CMP, troponin were obtained.CBC unremarkable, chemistry showing creatinine 1.20, alk phosphatase 186, troponin 0.034 this is similar to his previous studies based on historical data. EKG showing a fibrillation, no ST depression or elevation identified. A venous Doppler of the right lower extremity was obtained as well as arterial ultrasound bilaterally for the dusky toes. A CT a of the chest. Decision to Disposition Date: Oct 27, 2018 Decision to Disposition Time: 21:00 Turned Over The care of the patient was turned over to Dr. Simon. BROOK Cervantes I authorize my typed signature that I authenticated this report. (BAIRON WASHINGTON-) ED Course Care was assumed at 9 PM shift change. Diagnostic studies were pending. Ultrasound and CTA pulmonary and gram. Diagnostic blood studies are unremarkable. Relatively unchanged from previously. Patient's other diagnostic studies ultrasound venogram and CTA showed no acute changes. Patient I think is generally fluid overloaded and needs to restrict his fluid intake. His leg examination suggest cellulitis. We covered with Keflex 500 mg 3 times a day. He's advised to double his Lasix for one week. He's advised to follow-up with primary care late in the week on or Wednesday. Patient is also advised to fluid restrict of 1.5 L per day. Decision to Disposition Date: Oct 24, 2018 Decision to Disposition Time: 22:14 (RANJIT SIMON DO) Depart Departure Latest Vital Signs Vital Signs Date Time Temp Pulse Resp B/P (MAP) Pulse Ox O2 Delivery O2 Flow Rate FiO2 10/24/18 22:08 62 90 10/24/18 22:00 120/80 (93) 10/24/18 18:58 3.0 10/24/18 18:43 98.8 16 Room Air (RANJIT SIMON DO) Impression: Primary Impression: Edema Additional Impressions: Cellulitis and abscess of right leg CHF exacerbation Condition: Improved Disposition: HOME OR SELF-CARE New Scripts Cephalexin Monohydrate (CEPHALEXIN) 500 Mg Cap 500 MG PO TID for infection, #30 CAP TAKE 1 CAPSULE BY MOUTH EVERY SIX HOURS Prov: RANJIT SIMON DO 10/24/18 Patient Instructions: Cellulitis (ED), Heart Failure (ED) Additional Instructions: Strict your fluid intake to 1.5 L or 1-1/2 quarts per day Double your Lasix for the next week Follow-up with your primary care doctor later in the week on or Wednesday Take Keflex 500 mg 3 times daily for cellulitis Problem Qualifiers Primary Impression: Edema Edema type: unspecified Qualified Codes: R60.9 - Edema, unspecified Additional Impressions: CHF exacerbation Heart failure type: unspecified Qualified Codes: I50.9 - Heart failure, unspecified BAIRON WASHINGTON LO[employer] SERVICING OFFICER- Oct 24, 2018 18:41 RANJIT SIMON DO Oct 24, 2018 21:10
--- NOTE | 2018-10-24 19:37 | EKG ---
FACILITY: [facility] - [place] PATIENT NAME: RABIA GOLDEN : [id number] MR: [id number] V: [id number] EXAM DATE: ORDERING PHYSICIAN: BAIRON WASHINGTON TECHNOLOGIST: MT Test Reason : CP Blood Pressure : / mmHG Vent. Rate : 069 BPM Atrial Rate : 085 BPM P-R Int : 000 ms QRS Dur : 108 ms QT Int : 438 ms P-R-T Axes : 000 115 -62 degrees QTc Int : 469 ms Atrial fibrillation Abnormal ECG When compared with ECG of 22-AUG-2018 12:12, Nonspecific T wave abnormality, worse in Lateral leads Confirmed by REED AMAYA ([id number]) on 10/25/2018 6:37:42 AM Referred By: Confirmed By:REED AMAYA
[2018-10-24 19:39] LABS: PLATELET COUNT, AUTOMATED 152 K/uL (150-450)
[2018-10-24] MEDS ORDERED: IOPAMIDOL 76% 150 ML INFUS BTL 150 ML ONE (20:34)
[2018-10-24] MEDS ORDERED: NS 0.9% 25 ML BAG 50 ML ONE (20:34)
--- NOTE | 2018-10-24 21:18 | RADIOLOGY IMAGING REPORT ---
FACILITY: [facility] - [place] PATIENT NAME: Pascale Fink : 1955 MR: [id number] V: [id number] EXAM DATE: ORDERING PHYSICIAN: BAIRON WASHINGTON TECHNOLOGIST: Location: [facility] Patient: Pascale Fink : 1955 Visit/Account:[id number] Date of Sevice: 10/24/2018 EXAMINATION: US VENOUS LOWER EXT RT COMPARISON: Ultrasound 08/22/2018. HISTORY: Right lower extremity pain and redness. FINDINGS: Standard right lower extremity Doppler ultrasound with color flow and spectral analysis is performed. The common femoral, femoral, and popliteal veins are widely patent and compress appropriately. The v isualized calf veins and the proximal greater saphenous vein are patent. No popliteal fluid collection. The contralateral common femoral vein is patent. IMPRESSION: No right lower extremity deep venous thrombosis. Report Dictated By: Ras Hollingsworth MD at 10/24/2018 9:13 PM Report E-Signed By: Ras Hollingsworth MD at 10/24/2018 9:14 PM WSN:[id number]
--- NOTE | 2018-10-24 21:53 | RADIOLOGY IMAGING REPORT ---
FACILITY: [facility] - [place] PATIENT NAME: Pascale Fink : 1955 MR: [id number] V: [id number] EXAM DATE: ORDERING PHYSICIAN: BAIRON WASHINGTON TECHNOLOGIST: Location: [facility] Patient: Pascale Fink : 1955 Visit/Account:[id number] Date of Sevice: 10/24/2018 ADDENDUM #1 ADDENDUM: There is a rough rounder machine error in the 1st line of the impression. It should state that there is no p ulmonary embolism. Report Dictated By: Mak Harris MD at 10/25/2018 6:27 AM Report E-Signed By: Mak Harris MD at 10/25/2018 6:[address] PE DATE: 10/24/2018 9:27 PM INDICATION: Short of breath, history of thrombus. COMPARISON: 08/22/2018 and previous. TECHNIQUE: Axial CT angiogram was obtained through the chest with intravenous contrast. Sagittal an d coronal MPR and MIP coronal reformations were also generated. 100 mL isovue 370. One of the [facility] dose optimization techniques was utilized in the performance of this exam: Automated exposure co ntrol; adjustment of the mA and/or kV according to the patient's size; or use of an iterative recons truction technique. Specific details can be referenced in the facility's radiology CT exam operation al policy. FINDINGS: Thyroid / Thoracic Inlet: No visualized thyroid nodule or supraclavicular lymphadenopathy. Pulmonary Arteries: Pulmonary arteries are enlarged, similar in appearance to prior. Peripheral brenda cifications along the pulmonary arteries bilaterally may be related to prior pulmonary emboli. No ap parent acute pulmonary embolism. Heart and Aorta: Persistent enlargement of the heart, particularly the right atrium and ventricle. T here is again reflux of contrast into the inferior vena cava and hepatic veins. Moderate volume of p ericardial fluid similar to prior. Nonaneurysmal aorta with mild calcification. Mediastinum and Ariana: No lymphadenopathy. No adenopathy. Lungs and Pleura: Trace right pericardial fluid. Subpleural micronodules in the left lower lobe are unchanged compared to June 2017 and do not require follow-up. Trace right pleural effusion. Breast and Axilla: No axillary lymphadenopathy. Upper Abdomen: Ebepg-ul-kzddgzus volume ascites. Bones and Soft Tissues: No suspicious osseous or soft tissue abnormality. IMPRESSION: 1. No pulmonary aneurysm. 2. Persistent enlargement of the pulmonary arteries, enlargement of the right side of the heart, ref lux of contrast in the IVC and hepatic veins, and moderate volume pericardial effusion. These are al l similar in appearance to August and are suspicious for pulmonary arterial hypertension and right h eart strain/failure. 3. Trace right pleural effusion. 4. Nxgyh-qd-nasnvywz volume ascites. Report Dictated By: Mak Harris MD at 10/24/2018 9:27 PM Report E-Signed By: Mak Harris MD at 10/24/2018 9:37 PM WSN:[id number]
--- NOTE | 2018-10-24 21:54 | RADIOLOGY IMAGING REPORT ---
FACILITY: [facility] PATIENT NAME: Pascale Fink : 1955 MR: [id number] V: [id number] EXAM DATE: ORDERING PHYSICIAN: BAIRON WASHINGTON TECHNOLOGIST: Location: [facility] [place] Patient: Pascale Fink : 1955 Visit/Account:[id number] Date of Sevice: 10/24/2018 Ultrasound bilateral lower extremity arterial duplex Doppler, color Doppler, and spectral analysis. History: Dusky toes. Comparison studies: No relevant priors. Findings: Right lower extremity- ESTATE AGENT: Patent and triphasic with PSV of 116 cm/s. Profunda femoris: Patent and triphasic with PSV of 77 cm/s. SFA proximal: Patent and triphasic with PSV of 118 cm/s. SFA mid: Patent and triphasic with PSV of 108 cm/s. SFA distal: Patent and triphasic with PSV of 61 cm/s. Popliteal: Patent and triphasic with PSV of 71 cm/s. CORK TILE FLOOR LAYER proximal: Patent and triphasic with PSV of 76 cm/s. CORK TILE FLOOR LAYER mid: Patent and triphasic with PSV of 103 cm/s. CORK TILE FLOOR LAYER distal: Patent and triphasic with PSV of 98 cm/s. JOON: Patent and triphasic with PSV of 66 cm/s. Dorsalis pedis: Patent and triphasic with PSV of 67 cm/s. Left lower extremity- ESTATE AGENT: Patent and triphasic with PSV of 101 cm/s. Profunda femoris: Patent and triphasic with PSV of 59 cm/s. SFA proximal: Patent and triphasic with PSV of 122 cm/s. SFA mid: Patent and triphasic with PSV of 102 cm/s. SFA distal: Patent and triphasic with PSV of 66 cm/s. Popliteal: Patent and triphasic with PSV of 67 cm/s. CORK TILE FLOOR LAYER proximal: Patent and triphasic with PSV of 80 cm/s. CORK TILE FLOOR LAYER mid: Patent and triphasic with PSV of 72 cm/s. CORK TILE FLOOR LAYER distal: Patent and triphasic with PSV of 84 cm/s. JOON: Patent and triphasic with PSV of 68 cm/s. Dorsalis pedis: Patent and triphasic with PSV of 85 cm/s. IMPRESSION: No definite acute abnormality or significant atherosclerosis of the arterial supply to th e lower extremities. Report Dictated By: Mak Harris MD at 10/24/2018 9:37 PM Report E-Signed By: Mak Harris MD at 10/24/2018 9:44 PM WSN:[id number]
[2018-10-24 22:00] VITALS: BP 120/80
[2018-10-24] MEDS ORDERED: CEPH500C24 PO (22:19)
[2018-10-24] MEDS ORDERED: CEPHALEXIN MONO 500 MG CAP PO ONE (22:20)
== END 2018-10-24 22:34 | disposition home or self-care (01) ==
LOC: ER 18:53
DX: I50.9 Heart failure, unspecified (principal); R60.9 Edema, unspecified; L03.115 Cellulitis of right lower limb
CPT/HCPCS: 71275; 84484; 85025; 93005; 93925; 93971; 99284; Q9967; 82040; 82247; 82310; 82374; 82435; 82565; 82947; 84075; 84132; 84155; 84295; 84450; 84460; 84520

== ENCOUNTER 2018-12-02 18:43 | Emergency (ER) | payer MEDICAID, MEDICARE ==
[2017-07-05 12:46] VITALS: Wt 111.1 kg
[~2018-12-02 18:43] MED LIST changes: +CEPH500C24 PO
[2018-12-02] MEDS ORDERED: ENT KIT ONE (18:50)
[2018-12-02] MEDS ORDERED: TRANEXAMIC AC 1000 MG/10ML SDV ONE (18:50)
--- NOTE | 2018-12-02 18:52 | ER Report ---
History and Physical Time Seen By MD: 18:48 HPI/ROS CHIEF COMPLAINT: Nosebleed HISTORY OF PRESENT ILLNESS: This is a 63-year-old male. He has had a nosebleed right nasal passage for the last hour. No injury to the nose. He is not taking blood thinners. History of nose bleeds in the past but none for quite some time. Tried holding pressure but is still bleeding. Denies any other bleeding. Feeling a little nauseous or gagging because of the blood going down into his throat. He also reports having a chronic problem with some increased sound in his left ear or by ringing or grinding sensation that will come and go. No associated pain. Scars the abnormal sound sensation some the left ear recommended follow-up with ENT Allergies: Coded Allergies: No Known Drug Allergies (Verified , 12/02/18) Home Meds Reported Medications Potassium Chloride (POTASSIUM CHLORIDE) 10 Meq Tab.er.prt, 10 MEQ PO QDAY 08/22/18 Ferrous Sulfate (IRON) 325 Mg Tablet, 325 MG PO QDAY 08/22/18 Furosemide (LASIX) 20 Mg Tablet, 1 TAB PO QDAY, TAB 08/22/18 Pantoprazole Sodium (PANTOPRAZOLE SODIUM) 40 Mg Tablet.dr, 40 MG PO QODAY, TA B.SR 12/26/17 Nitroglycerin (NITROGLYCERIN) 0.4 Mg Tab.subl, 0.4 MG SL Q5MIN PRN for PAIN 05/29/17 Allopurinol (ZYLOPRIM) 300 Mg Tablet, 300 MG PO QDAY, TAB 03/16/17 Fluticasone/Salmeterol (ADVAIR 250-50 DISKUS) 1 Each Disk.w.dev, 1 EACH IH BID 08/21/16 Discontinued Scripts Cephalexin Monohydrate (CEPHALEXIN) 500 Mg Cap, 500 MG PO TID for infection, #30 CAP TAKE 1 CAPSULE BY MOUTH EVERY SIX HOURS Prov:RANJIT RUELAS DO 10/24/18 Reviewed Nurses Notes: Yes Hx Smoking: No Smoking Status: Never Smoker Exposure to Second Hand Smoke?: Yes (father smoked cigars) Hx Substance Use Disorder: No Hx Alcohol Use: No Constitutional Vital Sign - Last 24 Hours 12/02/18 12/02/18 18:50 20:00 Temp 99.1 Pulse 79 91 Resp 17 15 B/P (MAP) 108/87 106/79 (88) Pulse Ox 83 92 O2 Delivery Oxy Mask Oxy Mask Physical Exam General Appearance: Alert, no distress. Eyes: Pupils equal and round no pallor or injection. ENT: Mucous membranes are moist. Oral mucosa is normal in appearance. Posterior oropharynx has some blood draining down the postnasal area. Right nasal passage with bleeding from the lower anterior nasal septum Tympanic membranes and canals are normal. Skin: Warm and dry, no rashes. DIFFERENTIAL DIAGNOSIS: After history and physical exam differential diagnosis was considered for nosebleed anterior nasal septum right nasal passage Medical Decision Making ED Course/Re-evaluation ED Course Procedure: Epistaxis control. Initially treated with compression with a nasal clamp. The patient had continued bleeding. We then used Neosynephrine nasal spray to try and acheive some vasoconstriction to slow or stop the bleeding. We also used some atomized 1% lidocaine with epinephrine, 0.5cc in the nasal passage and also some of this that was soaked into some cotton. The nose was re-clamped and we waited to re- evaluate. Re-evaluation revealed slowing of the bleeding. Then used some cotton soaked with TX a and left that in the nasal passage for about 10 minutes. The bleeding was identified and was on the anterior nasal septum. Cautery was attempted with silver nitrate. This was unsuccessful. Used a medium-sized Rhino Rocket nasal tampon with a little bit of bacitracin over it. Then use some tea x-ray to soak the cotton gauze. Following the procedure the patient was re- examined and the bleeding was well controlled. The patient tolerated the procedure well. The procedure was performed by myself. Decision to Disposition Date: December 02, 2018 Decision to Disposition Time: 20:03 Depart Departure Latest Vital Signs Vital Signs Date Time Temp Pulse Resp B/P (MAP) Pulse Ox O2 Delivery O2 Flow Rate FiO2 12/02/18 20:00 91 15 106/79 (88) 92 Oxy Mask 12/02/18 18:50 99.1 Impression: Primary Impression: Anterior epistaxis Condition: Improved Disposition: HOME OR SELF-CARE Patient Instructions: Nosebleed (ED) Additional Instructions: No blowing your nose or rubbing your nose. Return tomorrow afternoon for removal of the nasal packing. MARIELY THOMAS MD December 02, 2018 18:52
[2018-12-02 20:00] VITALS: BP 106/79
[2018-12-02] MEDS ORDERED: PHENYLEPHRINE 0.5% 15 ML BTL ONE (20:19)
[2018-12-02] MEDS ORDERED: LIDO/EPI 2% MDV 1:100,000 20ML INFIL ONE (20:19)
[2018-12-02] MEDS ORDERED: SILVER NITRATE SWABS 10 PKG TP ONE (20:19)
== END 2018-12-02 20:11 | disposition home or self-care (01) ==
LOC: ER 18:47
DX: R04.0 Epistaxis (principal)
CPT/HCPCS: 30903; 99283; A9270

== ENCOUNTER 2019-02-03 12:43 | Emergency (ER) | payer MEDICARE ==
[2017-07-05 12:46] VITALS: Wt 122.5 kg
--- NOTE | 2019-02-03 12:52 | ER Report ---
History and Physical Time Seen By MD: 12:50 HPI/ROS CHIEF COMPLAINT: Sore throat, ear pain, cough HISTORY OF PRESENT ILLNESS: 63-year-old male patient presents to emergency room with complaint of sore throat, ear pain and cough. Patient states been going on for more than 5 days. He states he is not had any fevers or chills. He states he has had some mucus that he has been coughing up, he says that the other day that there was some blood-tinged mucus as well. States he became concerned this morning when he did not have an appetite. He denies any nausea, vomiting or diarrhea. Patient states that he feels he is getting worse. He states he is not taking any medication for this. Patient is concerned about possible pneumonia. REVIEW OF SYSTEMS: Respiratory: As noted above Cardiovascular: No chest pain, no palpitations. Gastrointestinal: No vomiting, no abdominal pain. Musculoskeletal: No back pain. Allergies: Coded Allergies: No Known Drug Allergies (Verified , 12/02/18) Home Meds Active Scripts Amoxicillin/Pot Clav 875-125 Mg Tab (AUGMENTIN 875-125 TABLET) 1 Each Tablet, 1 TAB PO Q12H for 7 Days, #14 TAB Prov:CARMEN GRIDER SEAMARK ADVANCED OPERATOR MAINTAINER 02/03/19 Reported Medications Potassium Chloride (POTASSIUM CHLORIDE) 10 Meq Tab.er.prt, 10 MEQ PO QDAY 08/22/18 Ferrous Sulfate (IRON) 325 Mg Tablet, 325 MG PO QDAY 08/22/18 Furosemide (LASIX) 20 Mg Tablet, 1 TAB PO QDAY, TAB 08/22/18 Pantoprazole Sodium (PANTOPRAZOLE SODIUM) 40 Mg Tablet.dr, 40 MG PO QODAY, TAB.SR 12/26/17 Nitroglycerin (NITROGLYCERIN) 0.4 Mg Tab.subl, 0.4 MG SL Q5MIN PRN for PAIN 05/29/17 Allopurinol (ZYLOPRIM) 300 Mg Tablet, 300 MG PO QDAY, TAB 03/16/17 Fluticasone/Salmeterol (ADVAIR 250-50 DISKUS) 1 Each Disk.w.dev, 1 EACH IH BID 08/21/16 Past Medical/Surgical History Patient has a past medical history of concussion, CHF, A. fib, hypertension, obstructive sleep apnea, pneumonia, COPD, reflux, arthritis, fractures, back pain. Patient has a surgical history of tonsillectomy. Patient has a family medical history of cancer, CAD, stroke, diabetes. Reviewed Nurses Notes: Yes Hx Smoking: No Smoking Status: Never Smoker Exposure to Second Hand Smoke?: Yes (father smoked cigars) Hx Substance Use Disorder: No Hx Alcohol Use: No Constitutional Vital Sign - Last 24 Hours 02/03/19 02/03/19 02/03/19 02/03/19 12:48 13:05 13:05 13:12 Temp 98.4 Pulse 69 76 81 Resp 18 20 20 B/P (MAP) 145/104 Pulse Ox 88 91 O2 Delivery Nasal Cannula Nasal Cannula O2 Flow Rate 4.0 02/03/19 14:39 Pulse 99 Resp 16 B/P (MAP) 156/85 (108) Pulse Ox 92 O2 Delivery Nasal Cannula O2 Flow Rate 3 Physical Exam General Appearance: The patient is alert, has no immediate need for airway protection and no current signs of toxicity. Respiratory: Chest is non tender, lungs are clear to auscultation. Cardiac: regular rate and rhythm Gastrointestinal: Abdomen is soft and non tender, no masses, bowel sounds normal. Musculoskeletal: Neck: Neck is supple and non tender. Extremities have full range of motion and are non tender. Skin: No rashes or lesions. DIFFERENTIAL DIAGNOSIS: After history and physical exam differential diagnosis was considered for upper respiratory infection, sinusitis, pneumonia, COPD exacerbation. Medical Decision Making EKG/Imaging Imaging Exam type: CHEST PA LAT History: cough Comparison: May 17, 2018. Findings: Cardiac silhouette remains markedly enlarged but unchanged. Prominence of central pulmonary arteries also again noted. There is no evidence of acute appearing infiltrates pleural effusions or overt pulmonary edema. IMPRESSION: 1. Cardiac silhouette is markedly enlarged but unchanged Prominent central pulmonary arteries suggest pulmonary arterial hypertension No evidence of acute pulmonary consolidation Report Dictated By: Catrina Carbaajl MD at 02/03/2019 1:40 PM Report E-Signed By: Catrina Carbajal MD at 02/03/2019 1:42 PM ED Course/Re-evaluation ED Course Patient was admitted to the exam room, history and physical were obtained. Differential diagnoses were considered. On examination lungs are clear, heart is regular, abdomen is soft and nontender. Patient did have mucous membranes that were erythematous, swelling, purulent drainage from bilateral nostrils. His chest x-rays done as patient was complaining shortness of breath. The chest x- ray was negative. It is my thought at this time that with sore throat, the ear pain that the patient likely has a sinus infection. We will go ahead and get him started on Augmentin. He is take one tab twice a day 7 days. He is to follow-up with his primary care provider in the next week. I discussed this with the patient who verbalized understanding and agreement with plan. Decision to Disposition Date: Feb 03, 2019 Decision to Disposition Time: 14:06 Depart Departure Latest Vital Signs Vital Signs Date Time Temp Pulse Resp B/P (MAP) Pulse Ox O2 Delivery O2 Flow Rate FiO2 02/03/19 14:39 99 16 156/85 (108) 92 Nasal Cannula 3 02/03/19 12:48 98.4 Impression: Primary Impression: Sinusitis Condition: Improved Disposition: HOME OR SELF-CARE New Scripts Amoxicillin/Pot Clav 875-125 Mg Tab (AUGMENTIN 875-125 TABLET) 1 Each Tablet 1 TAB PO Q12H for 7 Days, #14 TAB Prov: CARMEN GRIDER 02/03/19 Patient Instructions: Sinusitis (ED) Additional Instructions: Increase fluid intake. Get plenty of rest. Continue with your normal medications. Follow up with your primary care provider in the next week. Return to the ER if condition worsens. Take Tylenol or Ibuprofen as needed for pain or fevers. Problem Qualifiers Primary Impression: Sinusitis Sinusitis location: pansinusitis Chronicity: acute Recurrence: non- recurrent Qualified Codes: J01.40 - Acute pansinusitis, unspecified CARMEN GRIDER Feb 03, 2019 12:52
[2019-02-03] MEDS ORDERED: ALBUTEROL/IPRATROPIUM 3 ML NEB NEB ONE (13:00)
--- NOTE | 2019-02-03 13:49 | RADIOLOGY IMAGING REPORT ---
FACILITY: [facility] PATIENT NAME: Pascale Fink : 1955 MR: [id number] V: [id number] EXAM DATE: ORDERING PHYSICIAN: CARMEN GRIDER TECHNOLOGIST: Location: [facility] [place] Patient: Pascale Fink : 1955 Visit/Account:[id number] Date of Sevice: 02/03/2019 Exam type: CHEST PA LAT History: cough Comparison: May 17, 2018. Findings: Cardiac silhouette remains markedly enlarged but unchanged. Prominence of central pulmonary arteries also again noted. There is no evidence of acute appearing infiltrates pleural effusions or overt pu lmonary edema. IMPRESSION: 1. Cardiac silhouette is markedly enlarged but unchanged Prominent central pulmonary arteries suggest pulmonary arterial hypertension No evidence of acute pulmonary consolidation Report Dictated By: Catrina Carbajal MD at 02/03/2019 1:40 PM Report E-Signed By: Catrina Carbajal MD at 02/03/2019 1:42 PM WSN:[id number]
[2019-02-03] MEDS ORDERED: AMOX-559 PO (14:07)
[2019-02-03 14:39] VITALS: BP 156/85
== END 2019-02-03 14:44 | disposition home or self-care (01) ==
LOC: ER 12:58
DX: J01.40 Acute pansinusitis, unspecified (principal); I11.0 Hypertensive heart disease with heart failure; I50.9 Heart failure, unspecified; J44.9 Chronic obstructive pulmonary disease, unspecified; K21.9 Gastro-esophageal reflux disease without esophagitis; G47.33 Obstructive sleep apnea (adult) (pediatric); Z79.899 Other long term (current) drug therapy
CPT/HCPCS: 71046; 94640; 99283; J7620

== ENCOUNTER 2019-02-17 16:28 | Emergency (ER) | payer MEDICARE ==
[2017-07-05 12:46] VITALS: Wt 122.5 kg
[~2019-02-17 16:28] MED LIST changes: +AMOX-559 PO
--- NOTE | 2019-02-17 16:30 | ER Report ---
History and Physical Time Seen By MD: 16:27 (BATOOL BAIG DO) HPI/ROS CHIEF COMPLAINT: Abdominal pain, status post paracentesis on February 13 HISTORY OF PRESENT ILLNESS: Patient is a 63-year-old male with a history of ascites here with complaints of abdominal soreness after having 5 L of ascites drained on February 13. Patient was concerned that he had reaccumulation of the fluid. Patient also complains of abdominal soreness but denies fevers, chills, chest pain, shortness of breath. Patient is afebrile, hemodynamically stable at time of evaluation. REVIEW OF SYSTEMS: Constitutional: No fever, no chills. Eyes: No discharge. ENT: No sore throat. Cardiovascular: No chest pain, no palpitations. Respiratory: No cough, no shortness of breath. Gastrointestinal: + abdominal soreness and distention no vomiting. Genitourinary: No hematuria. Musculoskeletal: No back pain. Skin: No rashes. Neurological: No headache. (BATOOL BAIG DO) Allergies: Coded Allergies: No Known Drug Allergies (Verified , 02/17/19) Home Meds Active Scripts Furosemide (LASIX) 20 Mg Tablet, 1-2 TAB PO DAILY for as directe for ascites reduct, #60 TAB Prov:RANJIT SIMON Rhys DO 02/17/19 Reported Medications Aspirin (ASPIR 81) 81 Mg Tablet.dr, 81 MG PO BID, TAB 02/13/19 Potassium Chloride (POTASSIUM CHLORIDE) 10 Meq Tab.er.prt, 10 MEQ PO QDAY 08/22/18 Ferrous Sulfate (IRON) 325 Mg Tablet, 325 MG PO QDAY 08/22/18 Furosemide (LASIX) 20 Mg Tablet, 1 TAB PO QDAY, TAB 08/22/18 Pantoprazole Sodium (PANTOPRAZOLE SODIUM) 40 Mg Tablet.dr, 40 MG PO QODAY, TAB.SR 12/26/17 Nitroglycerin (NITROGLYCERIN) 0.4 Mg Tab.subl, 0.4 MG SL Q5MIN PRN for PAIN 05/29/17 Allopurinol (ZYLOPRIM) 300 Mg Tablet, 300 MG PO QDAY, TAB 03/16/17 Fluticasone/Salmeterol (ADVAIR 250-50 DISKUS) 1 Each Disk.w.dev, 1 EACH IH BID 08/21/16 Discontinued Scripts Amoxicillin/Pot Clav 875-125 Mg Tab (AUGMENTIN 875-125 TABLET) 1 Each Tablet, 1 TAB PO Q12H for 7 Days, #14 TAB Prov:CARMEN GRIDER TEACHER EDUCATION INSTRUCTOR 02/03/19 Hx Smoking: No Smoking Status: Never Smoker Exposure to Second Hand Smoke?: Yes (father smoked cigars) Hx Substance Use Disorder: No Hx Alcohol Use: No (BATOOL BAIG DO) Constitutional Vital Sign - Last 24 Hours 02/17/19 02/17/19 02/17/19 02/17/19 16:36 17:00 17:30 18:00 Temp 98.6 Pulse 75 66 66 66 Resp 22 B/P (MAP) 134/104 99/60 (73) 113/83 (93) 107/76 (86) Pulse Ox 91 93 91 O2 Delivery Nasal Cannula 02/17/19 18:30 Pulse 67 B/P (MAP) 110/76 (87) Pulse Ox 91 (RANJIT SIMON DO) Physical Exam General Appearance: The patient is alert, has no immediate need for airway protection and no signs of toxicity. Uncomfortable appearing Eyes: Pupils equal and round no pallor or injection. ENT, Mouth: Mucous membranes are moist. Respiratory: There are no retractions, lungs are clear to auscultation. Cardiovascular: Regular rate and rhythm. Gastrointestinal: Abdomen is distended and mildly tender on palpation with no focal area of maximum tenderness Neurological: No focal neurological deficits, alert and oriented Skin: Warm and dry, no rashes. Musculoskeletal: Neck is supple non tender. Extremities are nontender, nonswollen and have full range of motion. DIFFERENTIAL DIAGNOSIS: After history and physical exam differential diagnosis was considered for abdominal pain including but not limited to appendicitis, cholecystitis, gastritis and urinary tract infection. SBP (BATOOL BAIG S DO) Medical Decision Making Data Points Result Diagram: 02/17/19 1640 02/17/19 1640 Laboratory Hematology Test 02/17/19 16:40 White Blood Count 6.4 k/uL (4.5-11.0) Red Blood Count 5.15 M/uL (4.00-5.60) Hemoglobin 17.0 g/dL (14.0-18.0) Hematocrit 50.9 % (42.0-52.0) Mean Corpuscular Volume 98.8 fL (80.0-96.0) H Mean Corpuscular Hemoglobin 33.1 pg (26.0-33.0) H Mean Corpuscular Hemoglobin Concent 33.5 g/dL (32.0-36.0) Red Cell Distribution Width 15.6 % (11.5-14.5) H Platelet Count 180 K/uL (150-450) Mean Platelet Volume 9.6 fL (7.2-11.1) Neutrophils (%) (Auto) 68.2 % (39.4-72.5) Lymphocytes (%) (Auto) 11.6 % (17.6-49.6) L Monocytes (%) (Auto) 8.7 % (4.1-12.4) Eosinophils (%) (Auto) 10.5 % (0.4-6.7) H Basophils (%) (Auto) 1.0 % (0.3-1.4) Nucleated RBC Relative Count (auto) 0.1 /100WBC Neutrophils # (Auto) 4.4 K/uL (2.0-7.4) Lymphocytes # (Auto) 0.7 K/uL (1.3-3.6) L Monocytes # (Auto) 0.6 K/uL (0.3-1.0) Eosinophils # (Auto) 0.7 K/uL (0.0-0.5) H Basophils # (Auto) 0.1 K/uL (0.0-0.1) Nucleated RBC Absolute Count (auto) 0.01 K/uL Peripheral Blood Smear Yes Y/N Chemistry Test 02/17/19 16:40 Sodium Level 138 mmol/L (137-145) Potassium Level 4.1 mmol/L (3.5-5.0) Chloride Level 100 mmol/L (98-107) Carbon Dioxide Level 27 mmol/L (22-30) Blood Urea Nitrogen 24 mg/dl (9-21) Creatinine 1.40 mg/dl (0.66-1.25) Glomerular Filtration Rate Calc 50.9 Random Glucose 108 mg/dl (75-110) Lactate 1.7 mmol/L (0.7-2.1) Calcium Level 8.7 mg/dl (8.4-10.2) Total Bilirubin 1.7 mg/dl (0.2-1.3) Aspartate Amino Transf (AST/SGOT) 37 U/L (0-35) Alanine Aminotransferase (ALT/SGPT) 32 U/L (0-56) Alkaline Phosphatase 159 U/L (0-126) Total Protein 7.2 g/dl (6.3-8.2) Albumin 3.8 g/dl (3.5-5.0) Lipase 125 U/L (23-300) Coagulation Test 02/17/19 16:40 Prothrombin Time 14.8 seconds (12.0-14.4) Prothromb Time International Ratio 1.16 Activated Partial Thromboplast Time 32 seconds (23-35) Urinalysis Test 02/17/19 17:18 Urine Color Yellow Urine Clarity Clear Urine pH 5.0 pH (4.8-9.5) Urine Specific [place] 1.011 Urine Protein Negative mg/dL (NEGATIVE) Urine Glucose (UA) Negative mg/dL (NEGATIVE) Urine Ketones Negative mg/dL (NEGATIVE) Urine Blood Moderate (NEGATIVE) Urine Nitrite Negative (NEGATIVE) Urine Bilirubin Negative (NEGATIVE) Urine Urobilinogen 2.0 mg/dL (0.2-1.9) Urine Leukocyte Esterase Negative (NEGATIVE) Urine RBC 1 /HPF (0-2/HPF) Urine WBC <1 /HPF (0-5/HPF) Urine Squamous Epithelial Cells None /LPF (</=FEW) Urine Bacteria Negative /HPF (NONE-FEW) Urine Hyaline Casts Many /LPF (NONE-FEW) Urine Mucus Few /HPF (NONE-FEW) (RANJIT SIMON DO) EKG/Imaging Imaging Results: CT scan of the abdomen and pelvis with IV contrast was obtained. The results of the study are EXAMINATION: CT abdomen and pelvis with IV contrast HISTORY: Abdominal pain. Recent pancreatitis. TECHNIQUE: Axial CT images of the abdomen and pelvis were obtained with IV contrast, with coronal and sagittal 2D reconstructed images. One of the following dose optimization techniques was utilized in the performance of this exam: Automated exposure control; adjustment of the mA and/or kV according to the patient's size; or use of an iterative reconstruction technique. Specific details can be referenced in the facility's radiology CT exam operational policy. Contrast: 75 mL of IV Isovue-370. COMPARISON: 02/13/2019. FINDINGS: Liver: Mildly lobular contour of the liver surface may indicate cirrhosis. No focal liver mass. Gallbladder and bile ducts: Cholelithiasis. No bile duct dilatation. Spleen: Negative. Pancreas: Normal CT appearance of the pancreas with normal parenchymal enhancement. No pancreatic ductal dilatation. Adrenal glands: Negative. Kidneys: No urinary calculi or hydronephrosis. The kidneys enhance normally. 3 cm cyst in the mid left kidney. Bowel and peritoneum: There is a moderate to large volume of ascites throughout the abdomen and pelvis, similar to the prior exam. No free intraperitoneal air. The small bowel and colon are normal in caliber. No evidence of bowel obstruction or ileus. No localized bowel wall thickening. Scattered colonic diverticulosis. Small hiatal hernia. Pelvic structures: The urinary bladder is decompressed. Small bladder diverticulum arising from the lateral left bladder wall. Lymph node assessment: Negative. Vessels: The abdominal aorta and IVC are patent and normal in caliber. Mild vascular calcifications. The portal veins and tributaries are patent. Again noted are venous collaterals in the upper abdomen including a recanalized paraumbilical venous collateral which may indicate portal hypertension. Musculoskeletal: No acute osseous findings. Chronic multilevel degenerative changes along the spine. There is chronic bilateral L5 spondylolysis with grade 2 spondylolisthesis of L5 on S1. Osseous fusion across the L5-S1 disc space. Chronic degenerative changes at both hips, greater on the right. Body wall: Stable edema along the subcutaneous soft tissues of the abdominal wall with some skin thickening along the abdominal wall pannus. Lung bases: Trace amount pleural fluid on the right with mild right basilar atelectasis. IMPRESSION: 1. Persistent moderate to large volume of ascites throughout the abdomen and pelvis. 2. The small bowel and colon are normal in caliber. 3. No other acute intra-abdominal findings. Normal CT appearance of the pa ncreas. 4. Again noted are changes suggesting possible cirrhosis and portal hypertension with a slightly lobular contour of the liver surface and a recanalized paraumbilical venous collateral. The study was read by the radiologist. I viewed the images myself on the PACS system. (RANJIT SIMON DO) ED Course/Re-evaluation ED Course Patient is a 63-year-old male with history of ascites with a recent paracentesis on February 13 at which time 5 L of ascitic fluid were evacuated. Patient is afebrile, hemodynamically stable he complains of continued abdominal distention and tenderness. There is no leukocytosis, electrolytes are stable at this time. CT imaging was completed. Initial ultrasound evaluation showed a small amount of ascitic fluid adjacent to bowel. Initially attempted retrieving a small sample of ascitic fluid however on reevaluation, bowel was close to the abdominal wall so the procedure was aborted initially until CT imaging was completed. Patient was signed out to Dr. Simon at shift change pending CT imaging. Decision to Disposition Date: Feb 17, 2019 Decision to Disposition Time: 18:00 (BATOOL BAIG DO) ED Course Care was assumed at shift change from Dr. Baig. His diagnostic CT scan of the abdomen and pelvis is pending. The CAT scan does show significant ascites. Patient admits he is out of his Lasix. He is due to get a refill in 2 days. We will refill his Lasix 20 mg advised him to take 2 tablets daily until he can follow-up with Dr. Og his primary care early next week. Patient advised to keep track of his fluid accumulation by daily weights. Patient advised to restrict his salt intake and also keep his oral fluid intake to less than 2 L per day. Decision to Disposition Date: Feb 17, 2019 Decision to Disposition Time: 18:39 (RANJIT SIMON DO) Depart Departure Latest Vital Signs Vital Signs Date Time Temp Pulse Resp B/P (MAP) Pulse Ox O2 Delivery O2 Flow Rate FiO2 02/17/19 18:30 67 110/76 (87) 91 02/17/19 16:36 98.6 22 Nasal Cannula (RANJIT SIMON DO) Impression: Primary Impression: Ascites Condition: Improved Disposition: HOME OR SELF-CARE Referrals: FRANCA OG MD (PCP) New Scripts Furosemide (LASIX) 20 Mg Tablet 1-2 TAB PO DAILY for as directe for ascites reduct, #60 TAB Prov: RANJIT SIMON DO 02/17/19 Patient Instructions: Ascites (ED) Additional Instructions: Record your daily weight in the morning Avoid salt intake Restrict fluid intake to 2 L per day Double your Lasix to 40 mg per day until you follow up with Dr. Og on Wednesday or Wednesday next week Follow-up with your primary care next week Problem Qualifiers Primary Impression: Ascites Ascites type: due to alcoholic cirrhosis Qualified Codes: K70.31 - Alcoholic cirrhosis of liver with ascites BATOOL BAIG DO Feb 17, 2019 16:30 RANJIT SIMON DO Feb 17, 2019 18:43
[2019-02-17] MEDS ORDERED: IOPAMIDOL 76% 100 ML INFUS BTL 100 ML ONE (16:51)
[2019-02-17 16:56] LABS: PLATELET COUNT, AUTOMATED 180 K/uL (150-450)
[2019-02-17 17:00] LABS: INR 1.16
[2019-02-17 18:30] VITALS: BP 110/76
--- NOTE | 2019-02-17 18:36 | RADIOLOGY IMAGING REPORT ---
[place] [facility] [place] Pascale Fink : 1955 MR: [id number] V: [id number] EXAM DATE: ORDERING PHYSICIAN: BATOOL CHAKRABORTY TECHNOLOGIST: Location: [facility] - [place] Patient: Pascale Fink : 1955 Visit/Account:[id number] Date of Sevice: 02/17/2019 EXAMINATION: CT abdomen and pelvis with IV contrast HISTORY: Abdominal pain. Recent pancreatitis. TECHNIQUE: Axial CT images of the abdomen and pelvis were obtained with IV contrast, with coronal a nd sagittal 2D reconstructed images. One of the following dose optimization techniques was utilized in the performance of this exam: Autom ated exposure control; adjustment of the mA and/or kV according to the patient's size; or use of an i terative reconstruction technique. Specific details can be referenced in the facility's radiology C T exam operational policy. Contrast: 75 mL of IV [id number]. COMPARISON: 02/13/2019. FINDINGS: Liver: Mildly lobular contour of the liver surface may indicate cirrhosis. No focal liver mass. Gallbladder and bile ducts: Cholelithiasis. No bile duct dilatation. Spleen: Negative. Pancreas: Normal CT appearance of the pancreas with normal parenchymal enhancement. No pancreatic du ctal dilatation. Adrenal glands: Negative. Kidneys: No urinary calculi or hydronephrosis. The kidneys enhance normally. 3 cm cyst in the mid le ft kidney. Bowel and peritoneum: There is a moderate to large volume of ascites throughout the abdomen and pelv is, similar to the prior exam. No free intraperitoneal air. The small bowel and colon are normal in c aliber. No evidence of bowel obstruction or ileus. No localized bowel wall thickening. Scattered colo steve diverticulosis. Small hiatal hernia. Pelvic structures: The urinary bladder is decompressed. Small bladder diverticulum arising from t he lateral left bladder wall. Lymph node assessment: Negative. Vessels: The abdominal aorta and IVC are patent and normal in caliber. Mild vascular calcifications. The portal veins and tributaries are patent. Again noted are venous collaterals in the upper abdomen including a recanalized paraumbilical venous collateral which may indicate portal hypertension. Musculoskeletal: No acute osseous findings. Chronic multilevel degenerative changes along the spine . There is chronic bilateral L5 spondylolysis with grade 2 spondylolisthesis of L5 on S1. Osseous fus ion across the L5-S1 disc space. Chronic degenerative changes at both hips, greater on the right. Body wall: Stable edema along the subcutaneous soft tissues of the abdominal wall with some skin thi ckening along the abdominal wall pannus. Lung bases: Trace amount pleural fluid on the right with mild right basilar atelectasis. IMPRESSION: 1. Persistent moderate to large volume of ascites throughout the abdomen and pelvis. 2. The small bowel and colon are normal in caliber. 3. No other acute intra-abdominal findings. Normal CT appearance of the pancreas. 4. Again noted are changes suggesting possible cirrhosis and portal hypertension with a slightly lobu lar contour of the liver surface and a recanalized paraumbilical venous collateral. Report Dictated By: Juancarlos Calderon MD at 02/17/2019 6:18 PM Report E-Signed By: Juancarlos Calderon MD at 02/17/2019 6:29 PM WSN:[id number]
[2019-02-17] MEDS ORDERED: FURO20TA19 PO (18:52)
== END 2019-02-17 19:00 | disposition home or self-care (01) ==
LOC: ER 16:33
DX: K70.31 Alcoholic cirrhosis of liver with ascites (principal)
CPT/HCPCS: 74177; 81001; 83605; 83690; 85025; 85610; 85730; 99284; Q9967; 82040; 82247; 82310; 82374; 82435; 82565; 82947; 84075; 84132; 84155; 84295; 84450; 84460; 84520

== ENCOUNTER → 2019-02-20 | Outpatient (CLI) | payer MEDICARE, MEDICAID ==
[2017-07-05 12:46] VITALS: BMI 45.4
--- NOTE | 2019-02-21 09:12 | RADIOLOGY IMAGING REPORT ---
FACILITY: [facility] PATIENT NAME: Pascale Fink : 1955 MR: [id number] V: [id number] EXAM DATE: ORDERING PHYSICIAN: FRANCA OG TECHNOLOGIST: Location: [facility] - [place] Patient: Pascale Fink : 1955 Visit/Account:[id number] Date of Sevice: 02/20/2019 PARACENTESIS HISTORY: Ascites COMPARISON: 02/13/2019 Procedure/Findings: Following discussion of procedural risks and benefits, informed consent was obtained and witnessed. A formal timeout procedure was performed. Utilizing ultrasound guidance for fluid localization, the [facility] lower abdominal quadrant was prepped and draped in sterile fashion. Following administration of 1 % Xylocaine local anesthesia, a 5.5 Lao needle-catheter was introduced under ultrasound guidance. The paracentesis catheter was then slowly advanced while the inner needle was carefully fixed in plac e and subsequently removed. The external component was then secured to a Vacutainer device for purpos es of ascites fluid removal. 4950 mL of fluid was removed. The catheter was then removed and hemostasis achieved. Ultrasound images obtained for purposes of logan ging guidance were archived to the hospital PACS. Complications: No immediate complications. IMPRESSION: 1. Successful ultrasound-guided paracentesis with removal of 4950 mL of ascites fluid. Report Dictated By: Nile Han MD at 02/21/2019 9:02 AM Report E-Signed By: Nile Han MD at 02/21/2019 9:05 AM WSN:[id number]
== END ==
LOC: LAB 14:49
PROVIDERS: ATTEND Family Medicine
DX: R18.8 Other ascites (principal)
CPT/HCPCS: 49083; A7048